=== PATIENT | male | born 1980 | race Caucasian/White ===

== ENCOUNTER 2019-05-15 09:25 | Outpatient (CLI) | payer BC, SELFPAY ==
--- NOTE | 2019-05-15 09:39 | MR_ITS ---
WS: [id number] MRI THORACIC SPINE with and without contrast HISTORY: EPENDYMOMA, WHO GRADE II COMPARISON: 05/10/2018 and 01/03/2018 TECHNIQUE: Multiplanar sequences are performed in sagittal and axial planes. Sagittal and axial T1 fa t sat sequences post-ProHance 17 cc IV. Surgical resection of an intramedullary thoracic cord lesion has been performed at the T9 level. Post erior laminectomy defect at T8-9. There is tethering and posterior displacement of the thoracic cord centered at the T9 level and the surgical site. Probably due to some scarring and adhesions. There ar e a few areas of increased T2 signal scattered through the medullary portion of the cord which are si milar to the prior study. No enhancement. There is no evidence for recurrent or residual tumor. There is a small amount of persistent enhancement in the posterior epidural region but improved since the prior study. Postoperative changes in the soft tissues are also improving. No compromise on the thoracic cord. No significant disc disease or protrusions. Very minimal bulging at the T9-10 level centrally. Conus tapers normally ends at L1. MR/MR thoracic spine w con [id number] IMPRESSION: 1. Status post resection of the ependymoma at the T9 level. No evidence for re currence or new area of enhancement. 2. Mild tethering and posterior displacement of the thoracic cord at T9 level may be due to gliosis related to postsurgical changes, similar to the prior margi dy. No adverse findings. 3. No central or foraminal stenosis.
== END 2019-05-15 09:26 | disposition home or self-care (01) ==
LOC: RADWPI 09:34
PROVIDERS: Family Provider Internal Medicine; PCP Internal Medicine; Referring Provider Internal Medicine
DX: C71.9 Malignant neoplasm of brain, unspecified (principal); Z98.890 Other specified postprocedural states
CPT/HCPCS: 72147; A9579

== ENCOUNTER 2020-12-10 10:55 | Outpatient (CLI) | payer MEDICARE, SELFPAY ==
[2020-12-10 11:59] VITALS: BP 112/76; PULSE 91; RESP 14; TEMP 36.7; O2SAT 95
[2020-12-10 12:13] VITALS: BP 120/82; PULSE 72; RESP 14; TEMP 37.3; O2SAT 92
[2020-12-10 13:06] VITALS: BP 112/75; PULSE 73; RESP 18; TEMP 36.7; O2SAT 94
== END 2020-12-10 15:33 | disposition home or self-care (01) ==
PROVIDERS: PCP Internal Medicine; Visit Provider Internal Medicine
DX: U07.1 COVID-19 (principal)
CPT/HCPCS: 96365

== ENCOUNTER 2021-12-23 08:02 | Oncology outpatient (recurring) (ONCR) | payer MEDICARE, OTHER, SELFPAY | END 2022-01-04 23:59 | disposition home or self-care (01) | PROVIDERS: PCP Internal Medicine; Visit Provider Internal Medicine Medical Oncology | DX: C72.0 Malignant neoplasm of spinal cord (principal); G62.9 Polyneuropathy, unspecified; G89.3 Neoplasm related pain (acute) (chronic); F10.20 Alcohol dependence, uncomplicated; Z79.1 Long term (current) use of non-steroidal anti-inflammatories (NSAID); Z87.891 Personal history of nicotine dependence | CPT/HCPCS: 99205 ==

== ENCOUNTER 2022-01-19 15:15 | Oncology outpatient (recurring) (ONCR) | payer MEDICARE, OTHER, SELFPAY ==
--- NOTE | 2022-01-18 14:16 | MR_ITS ---
WS: [id number] MRI CERVICAL SPINE NONCONTRAST AND CONTRAST TECHNIQUE: Sagittal T1, T2 and STIR imaging. Axial T2, gradient, and fiesta imaging. Post gadolinium imaging. CLINICAL INFORMATION: Surveillance postresection COMPARISON: MRI October 19, 2020 FINDINGS: Straightening of the normal cervical lordosis. Mild disc bulging C5-C6 and C6-C7. Cord signal is norm al. No high-grade central canal stenosis. No abnormal gadolinium enhancement. C2-C3: Normal. C3-C4: Mild facet arthropathy. Mild RIGHT and no LEFT foraminal narrowing. Mild facet arthropathy. Sp inal canal is patent. C4-C5: Mild facet arthropathy. Spinal canal and foramen are patent. C5-C6: Mild disc bulging with slight effacement of ventral thecal sac. Spinal canal and foramen are p atent. Mild facet arthropathy. C6-C7: Mild disc bulging with slight effacement of ventral thecal sac. Mild bilateral bony foraminal narrowing. Spinal canal is patent. C7-T1: Minimal disc bulging. Spinal canal and foramen are patent. No abnormal gadolinium enhancement. Visualized brain stem structures: Normal. Prevertebral soft tissues: Normal. MR/MR cervical spine wo/w [id number] IMPRESSION: 1. Straightening of the normal cervical lordosis. No high-grade central canal narrowing. 2. Cord signal is normal. 3. No evidence of enhancing metastatic disease. 4. Mild disc bulging C5-C6 and C6-C7 with slight effacement of ventral thecal sac unchanged.
--- NOTE | 2022-01-18 14:16 | MR_ITS ---
WS: [id number] MRI THORACIC SPINE WITH CONTRAST TECHNIQUE: Sagittal T1, T2 and STIR imaging. Axial T2 imaging. Post gadolinium imaging was obtained. CLINICAL INFORMATION: Surveillance postresection COMPARISON: MRI October 19, 2020 FINDINGS: Prior postoperative changes laminectomies for intramedullary tumor resection at the T8-T9 level. Asso ciated myelomalacia in the thoracic cord is unchanged. Dorsal displacement of the thoracic cord at th is level with suspected arachnoid adhesion unchanged. No evidence of enhancing recurrent or progressi ve disease. Cord signal is otherwise normal. Tiny RIGHT pericentral protrusion T9-T10 with slight narrowing of the RIGHT subarticular recess. Mild facet arthropathy in the lower thoracic spine. Adrenal glands are normal. Normal GE junction. Normal caliber thoracic aorta. MR/MR thoracic spine wo/w [id number] IMPRESSION: 1. Prior postoperative changes resection of the T9 intramedullary ependymoma w ith wide laminectomy defects. No evidence of recurrent or progressive disease. 2. Associated myelomalacia within the thoracic cord with dorsal kinking and di splacement suspicious for arachnoid adhesion unchanged. 3. Tiny RIGHT pericentral protrusion T9-T10 with slight narrowing of the RIGHT subarticular recess. Mild facet arthropathy in the lower thoracic spine. 4. No other suspicious findings.
--- NOTE | 2022-01-18 15:19 | MR_ITS ---
WS: [id number] MRI LUMBAR SPINE WITH CONTRAST TECHNIQUE: Sagittal T1, T2 and STIR imaging. Axial T1 and T2 imaging. Post gadolinium imaging was obt ained. CLINICAL INFORMATION: Surveillance postresection COMPARISON: October 19, 2020 FINDINGS: Mild lumbar curve. No acute compression. No high-grade central canal stenosis. Postoperative changes RIGHT L5-S1 hemilaminectomy unchanged. No acute compression fractures. No abnormal gadolinium enhance ment. No evidence of drop metastasis. L1-L2: Normal. L2-L3: No significant disc bulging. Mild facet arthropathy. Spinal canal and foramen are patent. L3-L4: No significant disc bulging. Mild facet arthropathy. Spinal canal and foramen are patent. L4-L5: Mild annular bulging with slight effacement of ventral thecal sac. Mild facet arthropathy. Spi nal canal and foramen are patent. L5-S1: Mild disc bulging with slight effacement of ventral thecal sac. Slight impingement on the paul ersing RIGHT greater than LEFT S1 nerve roots in the subarticular recess. Small annular fissure. Prio r RIGHT hemilaminectomy. Mild RIGHT foraminal narrowing. Mild facet arthropathy. Mild central canal s tenosis. Visualized pelvic bony structures: Normal. Paravertebral soft tissues: Normal. MR/MR lumbar spine wo/w con [id number] IMPRESSION: 1. No evidence of enhancing drop metastasis. 2. Annular bulging L5-S1 with a small annular tear. Mild central canal stenosi s with slight impingement on the traversing RIGHT greater than LEFT S1 nerve ro ots appear similar to previous. 3. Mild RIGHT L5-S1 foraminal narrowing. 4. RIGHT L5-S1 hemilaminectomy.
[2022-01-18] MEDS: gadobenate dimeglumine 20 mL vial IV (16:24)
== END 2022-02-03 23:59 | disposition home or self-care (01) ==
LOC: RAD 01-20 00:02 → ONCMED 01-22 13:12
PROVIDERS: PCP Internal Medicine; Visit Provider Internal Medicine Medical Oncology
DX: Z53.9 Procedure and treatment not carried out, unspecified reason (principal)
CPT/HCPCS: 72156; 72157; 72158

== ENCOUNTER → 2022-05-02 13:50 | Outpatient (BNVA) | payer MEDICARE, SELFPAY | PROVIDERS: PCP Internal Medicine; Visit Provider Orthopaedic Surgery | DX: M54.50 Low back pain, unspecified (principal); M48.062 Spinal stenosis, lumbar region with neurogenic claudication | CPT/HCPCS: 72110; 99204 ==

== ENCOUNTER 2022-06-19 10:30 | Inpatient (IN) | payer MEDICARE, OTHER, SELFPAY ==
[2022-06-12 08:30] VITALS: BMI 35.1
--- NOTE | 2022-06-12 08:53 | ANES.PREANE2 ---
Pre-Anesthetic Assessment Height/Weight: Height 1.75 m Weight 107.955 kg Operation Date: 06/19/22 07:00 Proposed Procedures p Posterior Lumbar Interbody Fusion L4/5 [id number],M54.9 M48.062(Not Applicable) - Casey Musa DO Familial anesthetic complications: None Social Alcohol (3-4 nights a week) and No tobacco Exam alert, oriented x 3, clear to auscultation bilaterally and regular rate & rhythm Airway Mallampati: Class III Dentition: other (bridge) Pulmonary spontaneous pneumothorax with chest tube in 2003 - no residual deficits Neuropsych ependymoma at t9 grade II Anesthetic Plan ASA status: 3 Anesthesia: General Risk of > 500 ml blood loss (7ml/kg in children): No Medications/Allergies Home Medications Medication Instructions Recorded Confirmed Last Taken Type acetaminophen 325 mg tablet 325 mg PO QID PRN Pain 12/23/21 06/12/22 Unknown History (Tylenol) docusate sodium 100 mg capsule 100 mg PO DAILY PRN Constipation 12/23/21 06/12/22 Unknown History (Dulcolax Stool Softener (docusate)) ibuprofen 200 mg tablet 200 mg PO Q6H PRN Pain 12/23/21 06/12/22 06/06/22 History pregabalin 100 mg capsule (Lyrica) 100 mg PO BID 12/23/21 06/12/22 Unknown History sennosides 8.6 mg tablet (senna) 8.6 mg PO DAILY PRN Constipation 12/23/21 06/12/22 Unknown History sertraline 50 mg tablet (Zoloft) 50 mg PO DAILY 12/23/21 06/12/22 Unknown History sildenafil (pulm.hypertension) 20 See Rx Instructions PO DAILY PRN 12/23/21 06/12/22 Unknown History mg tablet Hypertension clobetasol 0.05 % topical foam 1 applic topical BID #100 grams 01/31/22 06/12/22 Unknown Rx clobetasol 0.05 % topical ointment 1 applic topical BID 2 weeks #60 01/31/22 06/12/22 Unknown Rx grams ketoconazole 2 % shampoo 1 applic topical .2x weekly #120 mL 01/31/22 06/12/22 Unknown Rx triamcinolone acetonide 0.1 % 1 applic topical BID #80 grams 01/31/22 06/12/22 Unknown Rx topical ointment hydroxyzine HCl 25 mg tablet 20 mg PO PRN PRN Anxiety 06/12/22 06/12/22 Unknown History Allergies Allergy/AdvReac Type Severity Reaction Status Date / Time No Known Allergies Allergy Verified 06/12/22 08:21 [facility] Anesthesia Medical History Anxiety and depression Chronic lower back pain Chronic migraine Ependymoma of spinal cord Erectile dysfunction History of pneumothorax Neuropathic pain Surgical History History of chest tube placement Due to spontaneous pneumothorax History of laminectomy (02/2017) L4 & L5 History of spinal surgery (02/11/18) Complete laminectomy with bilateral foraminotomies at T9 and hemilaminectomy with bilateral foraminotomies at T8 and T10 with excision of intraspinal neoplasm History of tonsillectomy Family History Father CAD (coronary artery disease) Grandfather CAD (coronary artery disease) Other Cancer Dementia Hyperlipidemia Hypertension Denies family history of Clotting disorder Psychiatric illness Chronic kidney disease (CKD) Suicide Anesthesia complication Bleeding disorder Lung disease Stroke Social History Smoking and tobacco status: never smoked Alcohol intake: current Alcohol intake frequency: few times a week Data Anesthesia Cardiac Studies: No Data to Display
[2022-06-19] VITALS (29 sets, daily range): BP systolic 108–149; BP diastolic 69–99; PULSE 58–103; RESP 12–20; TEMP 36.2–37.1; O2SAT 90–97; BMI 35.1
--- NOTE | 2022-06-19 06:25 | PM.HP ---
Providers/Chief Complaint Primary Care Provider: Chris Fontanez DO Chief Complaint: L4/5 PLIF [id number]/M54.9 M54. History of Present Illness Jefry Burnette is a 42 year old male He states he has been experiencing low back pain for several years. He states he has a surgical history of a bilateral L4/L5 laminectomy at [facility] in February of 2017. He states he has a surgical history of a intramedullary spinal tumor at T9, that was removed at [facility] in 2018. He reports low back pain at todays visit. He explains the laminectomy was performed to help his radiating pain in his bilateral lower extremities, he states since surgery he has experienced back pain that has been severe and constant. He denies any radiating pain. He reports numbness and tingling located in his bilateral lower extremities. He rates his pain a 9/10 at todays visit. ? Chief Complaint: back pain Onset: 2016 Duration: constant Characteristics: stabbing Severity: 7/10 Location: lumbar region Radiating symptoms: none Aggravating factors: sitting, standing, walking for long periods at a time. Alleviating factors: none Neuro deficits: reports numbness, tingling. denies incontinence of bowel/bladder, saddle anesthesia. Prior tx: laminectomy in 2016, injections at [facility], chiropractic therapy, physical therapy, TENS unit Review of Systems General: Reports: 10 or more systems reviewed and unremarkable except in HPI and below Const: Denies: fever(s), chills or body aches Card: Denies: chest pain or orthopnea Resp: Denies: dyspnea, productive cough or wheezing GI: Denies: abdominal pain, nausea or vomiting Musc: Reports: back pain Skin/Breast: Denies: changes in skin color or dry skin Neuro: Reports: numbness in extremities; Denies: weakness in extremities Psych: Denies: anxiety Wes/Lymph: Denies: easy bruising or easy bleeding Medications/Allergies Home Medications Medication Instructions Recorded Confirmed Last Taken Type acetaminophen 325 mg tablet 325 mg PO QID PRN Pain 12/23/21 06/19/22 06/18/22 History (Tylenol) docusate sodium 100 mg capsule 100 mg PO DAILY PRN Constipation 12/23/21 06/12/22 Unknown History (Dulcolax Stool Softener (docusate)) ibuprofen 200 mg tablet 200 mg PO Q6H PRN Pain 12/23/21 06/12/22 06/06/22 History pregabalin 100 mg capsule (Lyrica) 100 mg PO BID 12/23/21 06/19/22 06/17/22 History sennosides 8.6 mg tablet (senna) 8.6 mg PO DAILY PRN Constipation 12/23/21 06/12/22 Unknown History sertraline 50 mg tablet (Zoloft) 50 mg PO DAILY 12/23/21 06/19/22 06/17/22 History sildenafil (pulm.hypertension) 20 See Rx Instructions PO DAILY PRN 12/23/21 06/12/22 Unknown History mg tablet Hypertension clobetasol 0.05 % topical foam 1 applic topical BID #100 grams 01/31/22 06/12/22 Unknown Rx hydroxyzine HCl 25 mg tablet 20 mg PO PRN PRN Anxiety 06/12/22 06/12/22 Unknown History ketoconazole 2 % shampoo 1 applic topical .2x weekly #120 mL 06/13/22 Unknown Rx triamcinolone acetonide 0.1 % 1 applic topical BID #80 grams 06/13/22 Unknown Rx topical ointment Allergies Allergy/AdvReac Type Severity Reaction Status Date / Time No Known Allergies Allergy Verified 06/19/22 06:03 PFSH Acute PFSH: Medical History Anxiety and depression Chronic lower back pain Chronic migraine Ependymoma of spinal cord Erectile dysfunction History of pneumothorax Neuropathic pain Surgical History History of chest tube placement Due to spontaneous pneumothorax History of laminectomy (02/2017) L4 & L5 History of spinal surgery (02/11/18) Complete laminectomy with bilateral foraminotomies at T9 and hemilaminectomy with bilateral foraminotomies at T8 and T10 with excision of intraspinal neoplasm History of tonsillectomy Family History Father CAD (coronary artery disease) Grandfather CAD (coronary artery disease) Other Cancer Dementia Hyperlipidemia Hypertension Denies family history of Clotting disorder Psychiatric illness Chronic kidney disease (CKD) Suicide Anesthesia complication Bleeding disorder Lung disease Stroke Social History Smoking and tobacco status: never smoked Alcohol intake: current Alcohol intake frequency: few times a week Vitals/I&O/Wt Last Vital Signs Temp 97.6 F 06/19/22 05:58 Pulse 62 06/19/22 05:58 Resp 18 06/19/22 05:58 BP 131/81 06/19/22 05:58 Pulse Ox 94 06/19/22 05:58 O2 Del Method 06/19/22 06:11 Physical Exam Narrative: EXAM NARRATIVE: EXAM NARRATIVE: CONSTITUTIONAL: This is a normal patient in no acute distress. ?PSYCH: The patient is oriented to person, place and time. ?SKIN: The skin is of normal color and texture. ?NEURO: Patient is neurovascularly intact. A&P Assessment and plan (1) Lumbar stenosis with neurogenic claudication: L4-S1 PLIF Attestations Medical Necessity Statement*: Failed conservative tx Coding Level of Care Code Acute Code for [facility] Fwd Diagnoses Lumbar stenosis with neurogenic claudication M48.062
[2022-06-19] MEDS: sodium chloride 0.9% 1,000 ML 30 ML IV (06:43)
[2022-06-19] MEDS: HYDROmorphone 1 mg/mL INJ 1 mL 0.5 MG IVP ×2 (06:44→11:51)
[2022-06-19] MEDS: ceFAZolin 2,000 MG in sodium chloride 0.9% (plus) 50 ML 100 MG IV ×3 (06:59→22:02)
--- NOTE | 2022-06-19 07:15 | P.ANESUD_ITS ---
Pre-Anesthetic Update Pre-Anesthetic Assessment: Date of Surgery/Procedure: 06/19/22 Preop Sarah gnosis: Lumbar stenosis, DDD lumber spine Proposed Procedure: Operation Date: 06/19/22 07:00 Proposed Procedures p PLIF l4-5 [id number] Decomp L4/5, L5- S1. Instrumented Fusion L4-S1 w/any oth indicated procedures [id number],M54.9 M48.062(Not Applicable) - Casey Musa, DO Any changes to Pre-Anesthetic Assessment?: No Last Intake: Intake Last Liquid Date 06/18/22 Last Liquid Time 23:30 Last Solid Date 06/18/22 Last Solid Time 18:00 Vitals: Temperature 97.6 F 06/19/22 05:58 Temperature Source Temporal Artery S can 06/19/22 05:58 Pulse Rate 62 06/19/22 05:58 Pulse Rhythm 06/19/22 06:11 Pulse Strength 3+ Normal 06/19/22 06:11 Respiratory Rate 16 06/19/22 06:44 Respiratory Depth Normal 06/19/22 06:44 Blood Pressure 131/81 06/19/22 05:58 Blood Pressure Martha n 97 06/19/22 05:58 Pulse Oximetry 94 06/19/22 05:58 Oxygen Delivery Me thod 06/19/22 06:11 Exam: Pre-Anes Outpt Exam: alert, oriented x 3, clear to auscultation bilaterally and regular rate & rhythm Cardiac Studies: No Data to Display
[2022-06-19] MEDS: vancomycin 1,000 MG SDV 1000 MG XX (07:35)
[2022-06-19] MEDS: heparin, porcine 1,000 unit/mL INJ 10 mL 10000 UNIT IRRIGATION (07:35)
[2022-06-19] MEDS: lidocaine-epi 2% 20 mL INJ ×4 (08:10→10:25)
[2022-06-19 08:17] LABS: Hematocrit 41.9 % (42.0-52.0); Hemoglobin 14.2 g/dL (11.7-16.6)
--- NOTE | 2022-06-19 10:18 | XR_ITS ---
WS: [id number] C-ARM RADIOGRAPHS LUMBAR SPINE; 3 IMAGES HISTORY: or pics COMPARISON: None available. Intraoperative imaging during posterior lumbar fusion. Lumbar fusion from L4 to S1 with interbody spa cers at L4-5 and L5-S1. XR/XR lumbar spine 1V port [id number] IMPRESSION: Intraoperative imaging during lumbar fusion.
--- NOTE | 2022-06-19 10:40 | PM.OP ---
Operative Report Date of procedure: June 19, 2022 Pre-op diagnosis: Preop Diagnosis Lumbar stenosis, DDD lumber spine Post-op diagnosis: same Procedure done: 1. L4/5 Interbody fusion with posterolateral fusion 2. L5/S1 Interbody fusion with posterolateral fusion 3. Instrumentation L4- S1 4. Cage at L4/5 5. Cage at L5/S1 6. Laminectomy L4 7. Laminetomy L5 8. use of autograft from same incision 9. use of allograft 10. Bone marrow aspirate from right iliac crest 11. use of computer navigation/stereotactic for spine Surgeon: Casey Musa Production Pattern Maker: Jake Goodman Production Pattern Maker: The surgical services manager, Jake Goodman, PAC was needed for his expertise under the microscope. He was important and necessary throughout the procedure to complete in a safe and timely manner. He assisted with patient positioning prepping and draping tissue retraction suctioning of the operative field protection of the dural sac and tissue closure Estimated blood loss (mL): 1,300 Procedure: 1. L4/5 Interbody fusion with posterolateral fusion 2. L5/S1 Interbody fusion with posterolateral fusion 3. Instrumentation L4- S1 4. Cage at L4/5 5. Cage at L5/S1 6. Laminectomy L4 7. Laminetomy L5 8. use of autograft from same incision 9. use of allograft 10. Bone marrow aspirate from right iliac crest 11. use of computer navigation/stereotactic for spine Patient is brought to the operative suite. After undergoing anesthesia, the patient had neuro monitoring attached. Patient was then placed in the prone position on the Bradford table. All areas of impingement were well-padded. Patient was then prepped and draped in the normal sterile fashion. Skin incision was then made over the L4 -S1 . Subperiosteal dissection was made out to the transverse processes of L4 and L5 and the sacral ala. Attention was then brought to the [employer] bone marrow aspirate kit was used to aspirate bone marrow aspirate from right iliac crest. This was done by using the sharp probe to open up the bone. Aspiration was performed and then the blunt probe was then used to dissect down to through the bone tunnel. An aspirating well drawn back a millimeter approximately 20 cc of bone marrow aspirate was used. And mixed with the allograft and autograft bone that will be used. Next the fiducial was placed in the right iliac crest this is used for computer navigation. The C-arm was brought in the information from the C-arm was then loaded the computer in order to facilitate placing the screws using the computer navigation. These 2 pins were old later be removed at the end of the case where the fiducial was attached to. The technique for placing the pedicle screws was to use a drill followed by the gearshift probe attached to computer navigation. Followed by the ball probe to feel the superior inferior medial lateral wilcox of the pedicles. Then placement of the screws with computer navigation. Was done at each pedicle. Screws were placed at L4 bilaterally and L5 bilaterally and S1 bilaterally. Next attention was brought to performing the laminectomy ofL4. This was done using the high-speed bur Kerrisons and curettes. Once the lamina was removed and then attention was brought to performing a partial facetectomy on the contralateral side. This was done again using the high-speed bur curettes and Kerrisons. The ligamentum flavum was taken down bilaterally from L4 to L5. Attention was then brought to the facet on the ipsilateral side. The facet was taken down. The L4/5 nerve was decompressed as it passed around the L5 pedicle. The laminectomy was done for purposes of decompressing the nerve as well as placement of the cage. The L4 nerve was identified as it traversed through the L4/5 foramen. The thecal sac was identified and retracted. The L4/5 disc base was identified. Using a knife the disc base was opened. And then sequential richie were placed. The first shaver was a 6 and the last shaver was a 11. Using a pituitary and down going curette the endplates were scraped and disc material was removed from the space. Once adequate decompression of the disc base was felt to be had. Osteoamp sponge was packed into the anterior aspect of the disc base. Then a size 12 cage from [employer] [place] [employer] was placed after packing osteoamp into the cage. While placing the cage the thecal sac and L5 nerve was protected. C arm was used to ensure that the cages placed in the appropriate position. Next attention was brought to performing the laminectomy ofL5. This was done using the high-speed bur Kerrisons and curettes. Once the lamina was removed and then attention was brought to performing a partial facetectomy on the contralateral side. This was done again using the high-speed bur curettes and Kerrisons. The ligamentum flavum was taken down bilaterally from L5 to S1. Attention was then brought to the facet on the ipsilateral side. The facet was taken down. The S1 nerve was decompressed as it passed around the S1 pedicle. The laminectomy was done for purposes of decompressing the nerve as well as placement of the cage. The L5 nerve was identified as it traversed through the L5/S1 foramen. The thecal sac was identified and retracted. The L5/S1 disc base was identified. Using a knife the disc base was opened. And then sequential richie were placed. The first shaver was a 6 and the last shaver was a 12. Using a pituitary and down going curette the endplates were scraped and disc material was removed from the space. Once adequate decompression of the disc base was felt to be had. Osteoamp sponge was packed into the anterior aspect of the disc base. Then a size 13 cage from [employer] was placed after packing osteoamp into the cage. While placing the cage the thecal sac and S1 nerve was protected. C arm was used to ensure that the cages placed in the appropriate position. Attention was then brought to attaching the rods to the screws placed in the L4 bilaterally, L5 bilaterally and S1 bilaterally.. Caps were torqued into position. Locking the construct in place. Wound was copiously irrigated and then attention was brought to decorticating the facets and transverse processes laterally. Bone that was taken down from the lamina was used along with osteoamp fibers and sponges were packed into the lateral gutters along the facet joints. This was done bilaterally. Wound was then closed in a layered fashion starting with the thoracolumbar fascia. 0-vicryl was used the sub cutaneous tissue was closed with 2-0 vicryl and skin with 4-0 monocryl. Glue was then used to seal the skin and a steril dressing was applied. Patient was then placed in the supine position. The endotracheal tube was removed and patient was transferred to the PACU in stable condition.
[2022-06-19] MEDS: fentaNYL 50 mcg/mL INJ 2mL IVP ×2 (10:57→11:15)
[2022-06-19] MEDS: HYDROmorphone 1 mg/mL INJ 1 mL 0.25 MG IVP (11:41)
[2022-06-19 11:45] LABS: Hematocrit 38.8 % (42.0-52.0); Hemoglobin 12.7 g/dL (11.7-16.6)
[2022-06-19] MEDS: lactated ringers 1,000 ML 90 ML IV ×2 (12:49→22:01)
[2022-06-19] MEDS: HYDROcodone-acetaminophen 5-325 mg Tablet PO ×3 (13:26→22:39)
[2022-06-19] MEDS: ketorolac 30 mg/mL INJ IVP ×2 (13:27→22:02)
[2022-06-19] MEDS: morphine 4 mg/mL SDV 1 mL 2 MG IVP ×2 (14:29→18:22)
--- NOTE | 2022-06-19 15:18 | ANE.PACU2 ---
Inpatient post-anesthesia follow up: Airway intact: Yes Vital signs: Temperature 97.8 F Pulse Rate 75 Respiratory Rate 20 Blood Pressure 125/69 Pulse Oximetry 94 Oxygen Delivery Me thod Nasal Cannula Oxygen Flow Rate 2 Fraction of Inspir ed Oxygen Hydration adequate: Yes Nausea and vomiting: No Pain level: 4 Mental status: Baseline
[2022-06-19] MEDS: docusate sodium 100 mg Capsule PO (18:04)
[2022-06-19] MEDS: pregabalin 100 mg Capsule PO (18:04)
[2022-06-20 03:47] VITALS: BP 110/72; PULSE 83; RESP 17; TEMP 36.7; O2SAT 94
[2022-06-20 05:29] LABS: Hemoglobin 10.8 g/dL (11.7-16.6)
[2022-06-20] MEDS: ceFAZolin 2,000 MG in sodium chloride 0.9% (plus) 50 ML 100 MG IV (05:59)
--- NOTE | 2022-06-20 07:11 | PM.PN ---
Subjective Subjective: POD 1 Patient resting comfortably. Reports mild back pain leg pain is much improved. Denies shortness of breath, chest pain, headaches. Vitals/I&O/Wt Last Vital Signs Temp 98.1 F 06/20/22 03:47 Pulse 83 06/20/22 03:47 Resp 17 06/20/22 03:47 BP 110/72 06/20/22 03:47 Pulse Ox 94 06/20/22 03:47 O2 Del Method 06/20/22 03:47 O2 Flow Rate 2 06/19/22 22:32 06/19/22 06/20/22 06/20/22 22:59 06:59 14:59 Intake Total 878 / 1428 100 / 1528 Output Total 875 / 1875 380 / 2255 Balance 3 / -447 -280 / -727 Weight last 48 hrs Weight 238 lb Physical Exam Narrative: Patient presents alert and oriented x3 with a good general appearance normal mood and affect. Normal coordination normal stability. Mild tenderness around the incisional site with the incision appear to be clean and dry with Hemovac intact. No signs of erythema or drainage. No signs of infection. Patient denies any fevers or chills. 5/5 motor strength both lower extremities with negative straight leg raise bilaterally. Calves are supple no medial thigh tenderness. Pulses are 2+ at the dorsalis pedis and posterior tibial region. Good capillary refill throughout normal sensation light touch both lower extremities. Urinary Catheter Management: Salter: Cath Placed During This Visit: yes Reason for Continuing Indwelling Catheter: Other Urinary Catheter Date of Insertion: 06/19/22 Urinary Catheter Time of Insertion: 07:15 Data 06/20/22 05:13 A&P Assessment and plan (1) Status post lumbar spinal fusion: Physical therapy to evaluate and mobilize. We will discontinue Salter catheter and Hemovac drain. Continue abdominal binder when up mobilizing. Encourage incentive spirometry for pulmonary toilet. If patient remains stable will discharge home. No bending lifting or twisting activities continue walking program. We will see him back in the office in 1 week's time for wound check and patient was instructed to call if he is having problems. Attestations Medical Necessity Statement*: DC home later today if stable Coding Level of Care Code Acute Code for Chg Fwd Diagnoses Status post lumbar spinal fusion Z98.1
[2022-06-20 07:54] VITALS: BP 108/67; PULSE 89; RESP 16; TEMP 36.9; O2SAT 97
[2022-06-20] MEDS: pregabalin 100 mg Capsule PO (08:31)
[2022-06-20] MEDS: docusate sodium 100 mg Capsule PO (08:31)
[2022-06-20] MEDS: sertraline 50 mg Tablet PO (08:31)
[2022-06-20] MEDS: HYDROcodone-acetaminophen 5-325 mg Tablet PO ×2 (08:32→12:45)
[2022-06-20] MEDS: ketorolac 30 mg/mL INJ IVP (08:33)
--- NOTE | 2022-06-20 09:47 | PC.CHAP ---
Pastoral Care Encounter/Spiritual Assessment Type of Contact [] Declined chronic disease manager visit [] Patient/Family/Request visit [] Outpatient visit [] Follow-up visit [] Physician referral [] Code/Alert [x] Routine visit [] Staff referral [] Actively dying [] Patient sleeping [x] Family support [] [] Out of room [] Palliative care [] [] Receiving care in room [] Pre-surgical visit [] Trauma [] Long length of stay [] ICU visit [] Other: Relational/Emotional Strength [x] Patient feels connected with others/family/visitors/staff [] Distress [] Loneliness/isolation [] Abandonment Spirituality of Patient [x] Person of Mechelle [x] Attends [employer] of their [place]echelle [x] Believes in Prayer [] Reads Bible or Hindu materials [] There are Spiritual issues to be addressed Textile Worker Interventions [x] Prayer [x] Active listening [] Non-anxious presence [x] Spiritual/emotional support [] Crisis/trauma care [] Spiritual counseling [] Bereavement support [] Provided bereavement packet [] Provided Bible/devotional materials [] Provided toy/stuffed animal, coloring book to patient or family member [] Provided Communion [] Anointing/[place] [] Salvation [] Completed spiritual assessment [] Other: Impact on Illness or Injury [] Angry [] Fearful [] Anxious [] Often cries [] Exhaustion [] Unable to work [] Unable to attend adventism [] Unable to walk/stand [] Unable to read [] Unable to drive [] Unable to eat/drink [] Unable to sleep [] Unable to be with family [] Patient intubated [] Other: Summary Time spent with patient 10 min
[2022-06-20 10:50] VITALS: RESP 17
[2022-06-20] MEDS: morphine 4 mg/mL SDV 1 mL 2 MG IVP (10:50)
[2022-06-20 13:20] VITALS: RESP 17
--- NOTE | 2022-06-20 18:32 | PC.NURSE ---
2mg morphine wasted with Briseida Mcbride RN
--- NOTE | 2022-06-20 18:34 | PC.NURSE ---
Bessie witnessed waste of 2mg Morphine with me.
== END 2022-06-20 12:58 | disposition home or self-care (01) | DRG 455 ==
LOC: MEDSURG 10:33
PROVIDERS: Admitting Provider Orthopaedic Surgery; PCP Internal Medicine; Visit Provider Orthopaedic Surgery
PROC: 0SG00AJ Fusion of Lumbar Vertebral Joint with Interbody Fusion Device, Posterior Approach, Anterior Column, Open Approach (ICD-10-PCS; CPT 22612; principal; 2022-06-19 07:00)
DX: M48.062 Spinal stenosis, lumbar region with neurogenic claudication (principal); F41.8 Other specified anxiety disorders; G89.29 Other chronic pain
CPT/HCPCS: 36415; 51702; 72020; 76000; 85014; 85018; 86850; 86900; 96368; 97110; 97116; 97161; 97530; C1713; J0690; J1100; J1170; J1644; J1885; J2250; J2270; J2405; J2704; J2710; J3010; J3370; J3490; J7030; J7120; P9045

== ENCOUNTER 2022-06-24 08:18 | Emergency (ER) | payer MEDICARE, OTHER, SELFPAY ==
[2022-06-24 08:34] VITALS: BP 135/87; PULSE 77; RESP 16; TEMP 36.7; O2SAT 96
--- NOTE | 2022-06-24 08:54 | CTR_ITS ---
PROCEDURE INFORMATION: Exam: CT Head Without Contrast Exam date and time: 06/24/2022 9:10 AM Age: 42 years old Clinical indication: Pain; Headache not specified; Additional info: Post op plif with LIU and confusion TECHNIQUE: Imaging protocol: Computed tomography of the head without contrast. Axial, coronal and sagittal reformatted images were created and reviewed. Radiation optimization: All CT scans at this facility use at least one of these dose optimization techniques: automated exposure control; mA and/or kV adjustment per patient size (includes targeted exams where dose is matched to clinical indication); or iterative reconstruction. Other protocol: This patient has received 0 known CTs and 0 known cardiac nuclear medicine studies in the 12 months prior to the current study. COMPARISON: MR cervical spine wo/w [id number] 01/18/2022 4:42 PM RADIATION DOSE METRICS: Total DLP (mGy-cm): 1050.29 FINDINGS: Brain: No CT evidence of acute intracranial hemorrhage or acute territorial infarction. No significant mass effect or midline shift. Basal cisterns patent. Cerebral ventricles: Normal in size and configuration. Paranasal sinuses: Minimal ethmoid mucosal thickening. No air-fluid levels. Mastoid air cells: Grossly unremarkable. Bones/joints: No acute osseous abnormality. Soft tissues: Grossly unremarkable. CT/CT head wo con* [id number] IMPRESSION: 1. No CT evidence of acute intracranial pathology. 2. Additional findings, as above.
--- NOTE | 2022-06-24 09:00 | W.ED.HA ---
Documented by User: GAIL Ackerman 06/24/22 11:09 HPI - Headache General: Chief Complaint: Headache Stated Complaint: post back surgery, head problems Time Seen by Provider: 06/24/22 08:26 History of Present Illness: Jefry Burnette is a 42-year-old man who presents to the emergency department with complaints of headache and confusion. Patient is s/p 4 to S1 PLIF on 06/19/[address] Prado. Patient was admitted for observation and discharged on 06/20/2022. At the time of discharge patient had some mild tenderness but no complaints of headache. reports that patient has had increasing headaches and confusion since discharge home. Patient has taken his oral narcotic pain medication but no improvement in headache. Pain does change with position. It appears to be worse when lying down not when sitting up or standing. Patient's confusion has worsened; reports he has not slept in days. Patients' dressings are intact. PFSH ED PFSH: Medical History Anxiety and depression Chronic lower back pain Chronic migraine Ependymoma of spinal cord Erectile dysfunction History of pneumothorax Neuropathic pain Surgical History History of chest tube placement Due to spontaneous pneumothorax History of laminectomy (02/2017) L4 & L5 History of spinal surgery (02/11/18) Complete laminectomy with bilateral foraminotomies at T9 and hemilaminectomy with bilateral foraminotomies at T8 and T10 with excision of intraspinal neoplasm History of tonsillectomy Family History Father CAD (coronary artery disease) Grandfather CAD (coronary artery disease) Other Cancer Dementia Hyperlipidemia Hypertension Denies family history of Clotting disorder Psychiatric illness Chronic kidney disease (CKD) Suicide Anesthesia complication Bleeding disorder Lung disease Stroke Social History Smoking and tobacco status: never smoked Alcohol intake: current Alcohol intake frequency: few times a week Physical Exam Const: COMMON NORMALS: no acute distress, patient oriented x3 (Patient is oriented but has some confused speech initially.) and alert GENERAL APPEARANCE: cooperative ORIENTATION/CONSCIOUSNESS: Yes awake, Yes oriented to person, Yes oriented to place and Yes oriented to time HENMT: COMMON NORMALS: normocephalic and atraumatic HEAD & SCALP: normocephalic and atraumatic FACE & SINUS: normal facial exam MOUTH: Normal oral and palatal mucosa present THROAT: posterior oropharynx normal Eye: COMMON NORMALS: Equal, round and reactive pupils present, EOMs intact bilaterally, conjunctivae normal and no scleral icterus GENERAL EYE: appearance normal, both eyes and all related structures ALIGNMENT: Yes alignment normal PERIORBITAL: periorbital findings normal CONJUNCTIVA: Yes conjunctivae normal PUPIL: Yes Equal, round and reactive pupils present Neck/C-Spine: COMMON NORMALS: full ROM GENERAL: Yes normal visual inspection Lymph: LYMPHATIC: no lymphadenopathy noted Chest: COMMONS NORMALS: normal inspection of the chest Breast/axilla inspection: Yes no chest deformity, asymmetry, normal contours, no nodules, masses, tenderness Resp: COMMON NORMALS: normal respiratory effort, No retractions, No use of accessory muscles and clear to auscultation bilaterally EFFORT & INSPECTION: Yes able to speak in complete sentences and Yes symmetric chest movement AUSCULTATION: clear to auscultation bilaterally Cardio: COMMON NORMALS: regular rate, regular rhythm and Peripheral pulses 2+ throughout RATE: regular rate RHYTHM: regular rhythm PERIPHERAL PULSES: Peripheral pulses 2+ throughout GI: COMMON NORMALS: Normal to inspection, nondistended, normoactive bowel sounds present, Soft to palpation, non-tender and No hepatosplenomegaly present INSPECTION: Yes normal to inspection AUSCULTATION: Yes normoactive bowel sounds PALPATION: Yes Soft to palpation and Yes No hepatosplenomegaly present RECTAL EXAM: Yes deferred Back/Pelvis: OTHER: Lumbar surgical site dressing is clean dry and intact. Lumbar back pain 4 -/5 hip flexor, quad, anterior tibialis, gastroc, toe extensors lateral lower extremity Limited attempt on straight leg raise due to pain Sensation intact throughout all distributions. Extremities are well-perfused Extremity: COMMON NORMALS: normal to inspection GENERAL: Yes normal exam except as noted Neuro: COMMON NORMALS: patient oriented x3 (Patient is oriented but has some confused speech initially.), moves all extremities and no focal motor deficits SENSORIUM/ORIENTATION: Yes alert, Yes oriented to person, Yes oriented to place and Yes oriented to time CRANIAL NERVES: Yes CN normal except as noted Psych: COMMON NORMALS: mental status grossly normal, Normal thought process present, cooperative, activity/motor behavior normal, denies homicidal ideation and denies suicidal ideation THOUGHT PROCESS: Normal thought process present Skin: COMMON NORMALS: no rashes or lesions noted, no wounds and turgor normal GENERAL SKIN EXAM: no rashes or lesions noted and turgor normal Course Vital Signs: Vital signs: Vital Signs Temperature 98.1 F 06/24/22 08:34 Pulse Rate 77 06/24/22 08:34 Respiratory Rate 16 06/24/22 08:34 Blood Pressure 135/87 06/24/22 08:34 Pulse Oximetry 96 06/24/22 08:34 Oxygen Delivery Me thod 06/24/22 08:34 MDM - Headache Medical Decision Making Patient was evaluated in the emergency department today for back pain and headache. He is s/p PLIF on 06/19/2022. Patient and describe progressively worsening headache that is worse when lying down. Patient has experienced some confused speech but this is improved with pain management. I did obtain a CT head which was remarkable. I also obtained laboratory evaluation which did not reveal any significant leukocytosis, anemias, electrolyte disturbance, abnormal renal or hepatic function I did speak with Dr Prado at 0915. To determine if he wanted any additional imaging. He advised no additional imaging. Patient's pain was treated here in the emergency department with Norflex, Decadron, Toradol. Patient did have some improvement in his symptoms. I talked with patient about home medications but he elected to discharge home with a prescription of Fioricet and tizanidine. Patient has been instructed to return here if his headache worsens or he develops any new concerning symptoms. Patient to follow-up with PT and Dr. prado as instructed. Lab Data 06/24/22 09:35 06/24/22 09:[address] 06/24/22 08:54 IMPRESSION: 1. No CT evidence of acute intracranial pathology. 2. Additional findings, as above. Laboratory Results WBC 10.6 10^3/uL (4.0-10.0) H 06/24/22 09:35 RBC 3.51 10^6/uL (4.1-5.3) L 06/24/22 09:35 Hgb 11.3 g/dL (11.7-16.6) L 06/24/22 09:35 Hct 34.5 % (42.0-52.0) L 06/24/22 09:35 MCV 98.3 fl (80-94) H 06/24/22 09:35 MCH 32.2 pg (28.0-34.0) 06/24/22 09:35 MCHC 32.8 g/dL (30.0-36.0) 06/24/22 09:35 RDW 11.9 % (12.1-15.1) L 06/24/22 09:35 Plt Count 416 10^3/cmm (130-400) H 06/24/22 09:35 MPV 9.5 fL (7.4-10.4) 06/24/22 09:35 Neut % (Auto) 67.8 % 06/24/22 09:35 Lymph % (Auto) 16.8 % 06/24/22 09:35 [place] % (Auto) 10.6 % 06/24/22 09:35 Eos % (Auto) 3.0 % 06/24/22 09:35 Baso % (Auto) 0.8 % 06/24/22 09:35 Neut # (Auto) 7.20 10^3/uL (1.8-7.7) 06/24/22 09:35 Lymph # (Auto) 1.8 10^3/uL (0.8-4.8) 06/24/22 09:35 [place] # (Auto) 1.1 10^3/uL (0.2-0.9) H 06/24/22 09:35 Eos # (Auto) 0.3 10^3/uL (0.0-0.8) 06/24/22 09:35 Baso # (Auto) 0.1 10^3/uL (0.0-0.1) 06/24/22 09:35 Nucleated RBC % (auto) 0.2 % 06/24/22 09:35 Nucleated RBCs # 0.0 /100WBC 06/24/22 09:35 Sodium 133 mmol/L (136-145) L 06/24/22 09:35 Potassium 4.1 mmol/L (3.5-5.1) 06/24/22 09:35 Chloride 97 mmol/L (98-107) L 06/24/22 09:35 Carbon Dioxide 25 mmol/L (22-29) 06/24/22 09:35 Anion Gap 15.1 (5-19) 06/24/22 09:35 BUN 11 mg/dL (6-20) 06/24/22 09:35 Creatinine 0.7 mg/dL (0.7-1.2) 06/24/22 09:35 GFR Calculation 122.5 mL/min (90-130) 06/24/22 09:35 Glucose 128 mg/dL (65-115) H 06/24/22 09:35 Calculated Osmolality 277 mOsm/kg (285-295) L 06/24/22 09:35 Calcium 9.1 mg/dL (8.5-10.5) 06/24/22 09:35 Total Bilirubin 0.2 mg/dL (0.15-1.2) 06/24/22 09:35 AST 37 U/L (0-40) 06/24/22 09:35 ALT 40 U/L (0-41) 06/24/22 09:35 Alkaline Phosphatase 61 U/L (40-130) 06/24/22 09:35 Total Protein 6.9 g/dL (6.6-8.7) 06/24/22 09:35 Albumin 3.7 g/dL (3.5-5.2) 06/24/22 09:35 Globulin 3.2 g/dL (1.3-4.6) 06/24/22 09:35 Discharge Plan Discharge Patient Disposition: Home Clinical Impression: Headache Condition: Stable Prescriptions: New Medrol (Devon) 4 mg tablets,dose pack See Rx Instructions .ROUTE .COMPLEX Qty: 21 0RF Rx Instructions: orally per package directions tizanidine 4 mg capsule 4 mg PO Q8H Qty: 30 0RF Fioricet 50-300-40 mg capsule 1 cap PO QID PRN (Reason: pain) Qty: 14 0RF Senna with Docusate Sodium 8.6-50 mg tablet 1 tab-cap PO BID Qty: 30 0RF No Action pregabalin [Lyrica] 100 mg capsule 100 mg PO BID sertraline [Zoloft] 50 mg tablet 50 mg PO DAILY ibuprofen 200 mg tablet 200 mg PO Q6H PRN (Reason: Pain) Hold Instructions: Resume on 07/15/22. acetaminophen [Tylenol] 325 mg tablet 325 mg PO QID PRN (Reason: Pain) docusate sodium [Dulcolax Stool Softener (dss)] 100 mg capsule 100 mg PO DAILY PRN (Reason: Constipation) sennosides [senna] 8.6 mg tablet 8.6 mg PO DAILY PRN (Reason: Constipation) sildenafil (pulm.hypertension) 20 mg tablet See Rx Instructions PO DAILY PRN (Reason: Hypertension) Rx Instructions: 1 to 5 tablets orally daily PRN; administer doses at least 4-6 hours apart ketoconazole 2 % shampoo 1 applic topical .2x weekly Qty: 120 6RF Rx Instructions: Lather into scalp 2-3 times weekly. Allow to sit on scalp for 5 minutes before rinsing. (DME) Intraoperative Neuromonitoring See Rx Instructions .Route .MEDSUPPLY Qty: 1 0RF Rx Instructions: As directed (DME) Bone Growth Stimulator E0748 See Rx Instructions .Route .MEDSUPPLY Qty: 1 0RF Rx Instructions: As directed clobetasol 0.05 % foam 1 applic topical BID Qty: 100 3RF Rx Instructions: Apply twice daily to affected areas on scalp as needed triamcinolone acetonide 0.1 % ointment 1 applic topical BID Qty: 80 1RF Rx Instructions: Apply to affected areas twice daily for 2 weeks alternating with clobetasol hydroxyzine HCl 25 mg tablet 20 mg PO PRN PRN (Reason: Anxiety) hydrocodone-acetaminophen 5-325 mg tablet 1 - 2 tab PO .Q4-6H Qty: 40 0RF Discharge Orders: Discharge ED (Routine); Ordered 06/24/22 Or[facility] By: [facility] Referrals: Casey Prado DO [Primary Care Provider] - Discharge Diet: Advance as tolerated Discharge Activity: Resume usual activity and Increase activity as tolerated Patient Instructions: Butalbital/Acetaminophen/Caffeine (By mouth), Tizanidine (By mouth), Acute Headache (ED), Opioid Safety, Pain Management Activity Restrictions/Additional Instructions: Please take all medications as prescribed Wear your brace as instructed by Dr. Prado Activity per Dr Prado Observe all restrictions/precautions per Dr. Prado Dressing care per Dr. Prado Please take a stool softener every day that you are taking narcotic Muscle relaxers as prescribed Fioricet as prescribed Coding Level of Care Code ED Mechanical Reliability Engineer for Chg Fwd Documented by User: Polo La DO 06/26/22 06:06 HPI - Headache General: Chief Complaint: Headache Stated Complaint: post back surgery, head problems Time Seen by Provider: 06/24/22 08:26 PFSH ED PFSH: Medical History Anxiety and depression Chronic lower back pain Chronic migraine Ependymoma of spinal cord Erectile dysfunction History of pneumothorax Neuropathic pain Surgical History History of chest tube placement Due to spontaneous pneumothorax History of laminectomy (02/2017) L4 & L5 History of spinal surgery (02/11/18) Complete laminectomy with bilateral foraminotomies at T9 and hemilaminectomy with bilateral foraminotomies at T8 and T10 with excision of intraspinal neoplasm History of tonsillectomy Family History Father CAD (coronary artery disease) Grandfather CAD (coronary artery disease) Other Cancer Dementia Hyperlipidemia Hypertension Denies family history of Clotting disorder Psychiatric illness Chronic kidney disease (CKD) Suicide Anesthesia complication Bleeding disorder Lung disease Stroke Social History Smoking and tobacco status: never smoked Alcohol intake: current Alcohol intake frequency: few times a week Course Vital Signs: Vital signs: Vital Signs Temperature 98.1 F 06/24/22 08:34 Pulse Rate 77 06/24/22 08:34 Respiratory Rate 16 06/24/22 08:34 Blood Pressure 135/87 06/24/22 08:34 Pulse Oximetry 96 06/24/22 08:34 Oxygen Delivery Me thod 06/24/22 08:34 MDM - Headache Medical Decision Making Patient was evaluated in the emergency department today for back pain and headache. He is s/p PLIF on 06/19/2022. Patient and describe progressively worsening headache that is worse when lying down. Patient has experienced some confused speech but this is improved with pain management. I did obtain a CT head which was remarkable. I also obtained laboratory evaluation which did not reveal any significant leukocytosis, anemias, electrolyte disturbance, abnormal renal or hepatic function I did speak with Dr Prado at 0915. To determine if he wanted any additional imaging. He advised no additional imaging. Patient's pain was treated here in the emergency department with Norflex, Decadron, Toradol. Patient did have some improvement in his symptoms. I talked with patient about home medications but he elected to discharge home with a prescription of Fioricet and tizanidine. Patient has been instructed to return here if his headache worsens or he develops any new concerning symptoms. Patient to follow-up with PT and Dr. prado as instructed. Chart reviewed and patient discussed with midlevel. Agree with assessment and plan. Lab Data 06/24/22 09:35 06/24/22 09:[address] 06/24/22 08:54 IMPRESSION: 1. No CT evidence of acute intracranial pathology. 2. Additional findings, as above. Laboratory Results WBC 10.6 10^3/uL (4.0-10.0) H 06/24/22 09:35 RBC 3.51 10^6/uL (4.1-5.3) L 06/24/22 09:35 Hgb 11.3 g/dL (11.7-16.6) L 06/24/22 09:35 Hct 34.5 % (42.0-52.0) L 06/24/22 09:35 MCV 98.3 fl (80-94) H 06/24/22 09:35 MCH 32.2 pg (28.0-34.0) 06/24/22 09:35 MCHC 32.8 g/dL (30.0-36.0) 06/24/22 09:35 RDW 11.9 % (12.1-15.1) L 06/24/22 09:35 Plt Count 416 10^3/cmm (130-400) H 06/24/22 09:35 MPV 9.5 fL (7.4-10.4) 06/24/22 09:35 Neut % (Auto) 67.8 % 06/24/22 09:35 Lymph % (Auto) 16.8 % 06/24/22 09:35 [place] % (Auto) 10.6 % 06/24/22 09:35 Eos % (Auto) 3.0 % 06/24/22 09:35 Baso % (Auto) 0.8 % 06/24/22 09:35 Neut # (Auto) 7.20 10^3/uL (1.8-7.7) 06/24/22 09:35 Lymph # (Auto) 1.8 10^3/uL (0.8-4.8) 06/24/22 09:35 [place] # (Auto) 1.1 10^3/uL (0.2-0.9) H 06/24/22 09:35 Eos # (Auto) 0.3 10^3/uL (0.0-0.8) 06/24/22 09:35 Baso # (Auto) 0.1 10^3/uL (0.0-0.1) 06/24/22 09:35 Nucleated RBC % (auto) 0.2 % 06/24/22 09:35 Nucleated RBCs # 0.0 /100WBC 06/24/22 09:35 Sodium 133 mmol/L (136-145) L 06/24/22 09:35 Potassium 4.1 mmol/L (3.5-5.1) 06/24/22 09:35 Chloride 97 mmol/L (98-107) L 06/24/22 09:35 Carbon Dioxide 25 mmol/L (22-29) 06/24/22 09:35 Anion Gap 15.1 (5-19) 06/24/22 09:35 BUN 11 mg/dL (6-20) 06/24/22 09:35 Creatinine 0.7 mg/dL (0.7-1.2) 06/24/22 09:35 GFR Calculation 122.5 mL/min (90-130) 06/24/22 09:35 Glucose 128 mg/dL (65-115) H 06/24/22 09:35 Calculated Osmolality 277 mOsm/kg (285-295) L 06/24/22 09:35 Calcium 9.1 mg/dL (8.5-10.5) 06/24/22 09:35 Total Bilirubin 0.2 mg/dL (0.15-1.2) 06/24/22 09:35 AST 37 U/L (0-40) 06/24/22 09:35 ALT 40 U/L (0-41) 06/24/22 09:35 Alkaline Phosphatase 61 U/L (40-130) 06/24/22 09:35 Total Protein 6.9 g/dL (6.6-8.7) 06/24/22 09:35 Albumin 3.7 g/dL (3.5-5.2) 06/24/22 09:35 Globulin 3.2 g/dL (1.3-4.6) 06/24/22 09:35 Discharge Plan Discharge Patient Disposition: Home Clinical Impression: Headache Condition: Stable Prescriptions: New Medrol (Devon) 4 mg tablets,dose pack See Rx Instructions .ROUTE .COMPLEX Qty: 21 0RF Rx Instructions: orally per package directions tizanidine 4 mg capsule 4 mg PO Q8H Qty: 30 0RF Fioricet 50-300-40 mg capsule 1 cap PO QID PRN (Reason: pain) Qty: 14 0RF Senna with Docusate Sodium 8.6-50 mg tablet 1 tab-cap PO BID Qty: 30 0RF No Action pregabalin [Lyrica] 100 mg capsule 100 mg PO BID sertraline [Zoloft] 50 mg tablet 50 mg PO DAILY ibuprofen 200 mg tablet 200 mg PO Q6H PRN (Reason: Pain) Hold Instructions: Resume on 07/15/22. acetaminophen [Tylenol] 325 mg tablet 325 mg PO QID PRN (Reason: Pain) docusate sodium [Dulcolax Stool Softener (dss)] 100 mg capsule 100 mg PO DAILY PRN (Reason: Constipation) sennosides [senna] 8.6 mg tablet 8.6 mg PO DAILY PRN (Reason: Constipation) sildenafil (pulm.hypertension) 20 mg tablet See Rx Instructions PO DAILY PRN (Reason: Hypertension) Rx Instructions: 1 to 5 tablets orally daily PRN; administer doses at least 4-6 hours apart ketoconazole 2 % shampoo 1 applic topical .2x weekly Qty: 120 6RF Rx Instructions: Lather into scalp 2-3 times weekly. Allow to sit on scalp for 5 minutes before rinsing. (DME) Intraoperative Neuromonitoring See Rx Instructions .Route .MEDSUPPLY Qty: 1 0RF Rx Instructions: As directed (DME) Bone Growth Stimulator E0748 See Rx Instructions .Route .MEDSUPPLY Qty: 1 0RF Rx Instructions: As directed clobetasol 0.05 % foam 1 applic topical BID Qty: 100 3RF Rx Instructions: Apply twice daily to affected areas on scalp as needed triamcinolone acetonide 0.1 % ointment 1 applic topical BID Qty: 80 1RF Rx Instructions: Apply to affected areas twice daily for 2 weeks alternating with clobetasol hydroxyzine HCl 25 mg tablet 20 mg PO PRN PRN (Reason: Anxiety) hydrocodone-acetaminophen 5-325 mg tablet 1 - 2 tab PO .Q4-6H Qty: 40 0RF Discharge Orders: Discharge ED (Routine); Ordered 06/24/22 Ordered By: Phong Flores Referrals: Casey Prado, [Primary Care Provider] - Discharge Diet: Advance as tolerated Discharge Activity: Resume usual activity and Increase activity as tolerated Patient Instructions: Butalbital/Acetaminophen/Caffeine (By mouth), Tizanidine (By mouth), Acute Headache (ED), Opioid Safety, Pain Management Activity Restrictions/Additional Instructions: Please take all medications as prescribed Wear your brace as instructed by Dr. Prado Activity per Dr Prado Observe all restrictions/precautions per Dr. Prado Dressing care per Dr. Prado Please take a stool softener every day that you are taking narcotic Muscle relaxers as prescribed Fioricet as prescribed Coding Level of Care Code ED Mechanical Reliability Engineer for Gayathri Norton
[2022-06-24] MEDS: dexamethasone 10 mg/mL INJ IVP (09:22)
[2022-06-24] MEDS: ketorolac 30 mg/mL INJ IVP (09:23)
[2022-06-24] MEDS: ondansetron 2 mg/ML SDV 2 mL 4 MG IVP (09:23)
[2022-06-24] MEDS: orphenadrine 30 mg/mL Inj 2 mL 60 MG IVP (09:23)
[2022-06-24 09:43] LABS: Basophils # 0.1 10^3/uL (0.0-0.1); Basophils % 0.8 %; Eosinophils # 0.3 10^3/uL (0.0-0.8); Hematocrit 34.5 % (42.0-52.0); Hemoglobin 11.3 g/dL (11.7-16.6); Lymphocytes # 1.8 10^3/uL (0.8-4.8); Lymphocytes % 16.8 %; Mean Corpuscular HGB Conc 32.8 g/dL (30.0-36.0); Mean Corpuscular Hemoglobin 32.2 pg (28.0-34.0); Mean Corpuscular Volume 98.3 fl (80-94); Mean Platelet Volume 9.5 fL (7.4-10.4); Monocytes # 1.1 10^3/uL (0.2-0.9); Monocytes % 10.6 %; Neutrophils % 67.8 %; Nucleated Red Blood Cells % 0.2 %; Platelet Count 416 10^3/cmm (130-400); Red Blood Count 3.51 10^6/uL (4.1-5.3); Red Cell Distribution Width 11.9 % (12.1-15.1); White Blood Count 10.6 10^3/uL (4.0-10.0)
[2022-06-24 10:10] LABS: Alanine Aminotransferase 40 U/L (0-41); Albumin Level 3.7 g/dL (3.5-5.2); Alkaline Phosphatase 61 U/L (40-130); Anion Gap 15.1 (5-19); Aspartate Amino Transferase 37 U/L (0-40); Blood Urea Nitrogen 11 mg/dL (6-20); Calcium 9.1 mg/dL (8.5-10.5); Carbon Dioxide 25 mmol/L (22-29); Chloride 97 mmol/L (98-107); Globulin 3.2 g/dL (1.3-4.6); Glomerular Filtration Rate 122.5 mL/min (90-130); Glucose 128 mg/dL (65-115); Osmolality Calculated 277 mOsm/kg (285-295); Potassium 4.1 mmol/L (3.5-5.1); Sodium 133 mmol/L (136-145); Total Bilirubin 0.2 mg/dL (0.15-1.2); Total Protein 6.9 g/dL (6.6-8.7)
== END 2022-06-24 11:06 | disposition home or self-care (01) ==
PROVIDERS: Emergency Provider Nurse Practitioner; PCP Orthopaedic Surgery
DX: R51.9 Headache, unspecified (principal)
CPT/HCPCS: 70450; 80053; 85025; 96374; 96375; 99285; J1100; J1885; J2360; J2405

== ENCOUNTER 2022-06-29 14:12 | Outpatient (CLI) | payer MEDICARE, OTHER, SELFPAY ==
--- NOTE | 2022-06-29 14:45 | USCV_ITS ---
Jefry Burnette Age: 42 Gender: M : 1980 Exam Date: 06/29/2022 14:28 Ordering Phys: Jake Goodman PA-C Technologist: Bipin Patel [place] [facility] [place]: left leg swelling and pain after surgery PROCEDURES: Venous duplex imaging was performed in only the left lower extremity. The following venous structures were evaluated: common femoral vein, profunda vein, proximal portion of the greater saphenous vein, superficial femoral vein, and the popliteal vein. In addition, the posterior tibial and peroneal trunk were evaluated. Serial compression, augmentation maneuvers, and spectral Doppler flow evaluation were performed. FINDINGS: Normal 2-D Doppler and augmentation and compressibility throughout the lower extremity venous structures. Additional imaging through the proximal calf veins also reveals no thrombus. Limited evaluation of the greater saphenous vein is patent with no thrombus.. CONCLUSIONS No evidence of left lower extremity DVT. Jeremie Marr MD (Electronically Signed) Final Date: 29 June 2022 16:27 S
== END 2022-06-29 14:13 | disposition home or self-care (01) ==
PROVIDERS: PCP Orthopaedic Surgery; Visit Provider Physician Assistant
DX: M79.89 Other specified soft tissue disorders (principal); Z98.890 Other specified postprocedural states
CPT/HCPCS: 93971; 99024

== ENCOUNTER → 2022-07-04 09:00 | Outpatient (BNVA) | payer MEDICARE, OTHER, SELFPAY | PROVIDERS: PCP Orthopaedic Surgery; Visit Provider Orthopaedic Surgery | DX: M79.662 Pain in left lower leg (principal); Z98.1 Arthrodesis status | CPT/HCPCS: 72100; 99024 ==

== ENCOUNTER 2022-07-06 13:22 | Outpatient (CLI) | payer MEDICARE, OTHER, SELFPAY ==
--- NOTE | 2022-07-06 16:00 | CT_ITS ---
WS: [email or web address] CT LUMBAR SPINE, noncontrast. HISTORY: increased pain, post operative L4/5, L5/S1 LUMBAR FUSION TECHNIQUE: Contiguous 2.5 mm axial imaging are performed. Sagittal and coronal reformats are submitte d and reviewed. All CT scans at [facility] use at least one of these dose optimization techni ques: automated exposure control; mA and/or kV adjustment per patient size (includes targeted exams w here dose is matched to clinical indication); or iterative reconstruction. IV contrast: None DLP: 945.10 mGy.cm COMPARISON: Prior lumbar spine radiographs 07/04/2022 Recent posterior lumbar fusion extends from L4 to S1. Bilateral pedicle screws with interbody spacers at L4-5 and L5-S1. No subsidence or migration identified. Vertical rods are intact. No hardware frac ture is identified. There is extensive postoperative soft tissue changes beginning at the L3 level extending to the sacru m. Large laminectomy defects at L4 and L5. Low-attenuation within the soft tissues posteriorly and ex tending into the laminectomy defects from the L3-4 disc level inferiorly to L5-S1. Without IV contras t cannot exclude abscess. These findings all may be acceptable for recent postoperative status. Fluid collections at the postoperative site may be resolving hematomas or postoperative seromas. Obviously abscess is not excluded. There are a few fragments from the bone grafting at the facet joints. L1-2: Normal. L2-3: Normal. L3-4: Bilateral ligamentum flavum hypertrophy. No high-grade stenosis. L4-5: Obliteration of the soft tissue planes due to recent post surgery. No central stenosis. Bilater al mild foraminal narrowing. L5-S1: Large posterior laminectomy defects. Central disc and nerve roots are obliterated by the posto perative changes. Visualized retroperitoneum is normal. CT/CT lumbar spine wo con* [id number] IMPRESSION: 1. Patient is status post posterior lumbar fusion with interbody spacers from L4 to S1. No hardware complication is identified. 2. There is extensive post operative changes within the soft tissues beginning at the L3-4 level through L5-S1. These may all be satisfactory for the recent postop status. Combination of edema, resolving hematoma and seroma are likely. Postoperative abscess would be included in the differential. Clinical evaluatio n is recommended. 3. Large posterior laminectomy defects at L4-5 and L5-S1.
== END 2022-07-06 13:23 | disposition home or self-care (01) ==
LOC: RAD 13:23
PROVIDERS: PCP Orthopaedic Surgery; Visit Provider Orthopaedic Surgery
DX: Z98.1 Arthrodesis status (principal)
CPT/HCPCS: 72131

== ENCOUNTER → 2022-07-13 12:55 | Outpatient (BNVA) | payer MEDICARE, OTHER, SELFPAY | PROVIDERS: PCP Orthopaedic Surgery; Visit Provider Orthopaedic Surgery | DX: Z47.89 Encounter for other orthopedic aftercare (principal); Z98.1 Arthrodesis status | CPT/HCPCS: 99024 ==

== ENCOUNTER → 2022-08-10 14:39 | Outpatient (BNVA) | payer MEDICARE, OTHER, SELFPAY | PROVIDERS: PCP Orthopaedic Surgery; Visit Provider Orthopaedic Surgery | DX: Z47.89 Encounter for other orthopedic aftercare (principal); Z98.1 Arthrodesis status | CPT/HCPCS: 72100; 99024 ==

== ENCOUNTER → 2022-09-21 14:38 | Outpatient (BNVA) | payer MEDICARE, OTHER, SELFPAY | PROVIDERS: PCP Orthopaedic Surgery; Visit Provider Orthopaedic Surgery | DX: Z47.89 Encounter for other orthopedic aftercare (principal); Z98.1 Arthrodesis status | CPT/HCPCS: 72100; 99024 ==

== ENCOUNTER → 2022-12-26 15:17 | Outpatient (BNVA) | payer MEDICARE, OTHER, SELFPAY | PROVIDERS: PCP Orthopaedic Surgery; Visit Provider Physician Assistant | DX: Z98.1 Arthrodesis status (principal); Z98.890 Other specified postprocedural states | CPT/HCPCS: 72100; 99213 ==

== ENCOUNTER 2023-01-31 11:29 | Outpatient (CLI) | payer MEDICARE, OTHER, SELFPAY ==
--- NOTE | 2023-01-31 12:15 | MR_ITS ---
WS: [email or web address] MRI CERVICAL SPINE with and without contrast HISTORY: Follow-up. Known spine cancer. No new symptoms. COMPARISON: 01/18/2022 Technique: Multiplanar, multisequence noncontrast imaging of the cervical spine. Postcontrast sequenc es, MultiHance 20 mL. Mild straightening of the normal cervical lordosis. There is mild disc bulging at C5-6 and C6-7 simil ar to the prior study. No high-grade central stenosis. No bone lesions or abnormal signal identified. Signal within the cervical cord is normal. Visualized posterior fossa is unremarkable. Craniocervical junction, C1 and C2 relationship, odontoid process and soft tissues are normal. C2-C3: Normal. C3-C4: Mild bilateral facet joint arthritis. Mild RIGHT foraminal stenosis. Normal LEFT foramen. C4-C5: No significant stenosis. Mild facet joint arthritis. C5-C6: Mild annular disc bulging with mild effacement of the ventral thecal sac. No stenosis. Mild fa cet arthritis. C6-C7: Mild disc bulging with a very small central disc protrusion. Similar to the prior study. Mild bilateral foraminal stenosis due to osteophyte and facet disease. C7-T1: Normal. Paraspinal soft tissue are normal. No areas of abnormal enhancement within the vertebral bodies or so ft tissues. No discitis or osteomyelitis. No epidural enhancement. IMPRESSION: 1. No evidence for metastatic disease to the cervical spine. 2. Mild disc bulging at C5-6 and C6-7. No interval change. 3. Very mild foraminal stenosis at C6-7 due to disc bulging and small osteophytes.
--- NOTE | 2023-01-31 13:00 | MR_ITS ---
WS: [email or web address] MRI THORACIC SPINE with and without contrast HISTORY: Follow-up, known cancer. Post resection tumor. COMPARISON: 01/18/2022 TECHNIQUE: Multiplanar sequences are performed in sagittal and axial planes. MultiHance 20 mL IV. Postoperative changes of the intramedullary tumor resection at T8-9 are reidentified. Laminectomy def ects are noted at T8 and T9. There is mild dorsal displacement of the thoracic cord which is probably due to arachnoid adhesions. There is a small amount of increased T2 signal within the cord itself borges ggesting myelomalacia. Increased T2 signal and mild atrophy extends over a length of 2.3 cm at the T9 level. Not progressed since the prior study. Otherwise cord signal is normal. Conus tapers normally. No enhancing lesions along the cord surface. Vertebral bodies are normal. No disc space narrowing. Paravertebral soft tissues are normal. Reidentified is a very small, shallow RIGHT paracentral disc p rotrusion at T9-10. No progression. IMPRESSION: 1. Status post resection intramedullary T9 ependymoma. Postsurgical changes are stable. 2. Reidentified is mild cord atrophy and myelomalacia at the T9 level which is stable. The dorsal kin deanne of the cord is stable at the T9 level. Probably due to arachnoid adhesions. 3. Very shallow RIGHT paracentral disc protrusion at T9-10 is unchanged. 4. No metastatic lesions identified.
--- NOTE | 2023-01-31 13:45 | MR_ITS ---
WS: [email or web address] MRI LUMBAR SPINE WITH AND WITHOUT CONTRAST HISTORY: Follow-up known spine cancer. No new symptoms. COMPARISON: 01/18/2022. TECHNIQUE: Sagittal and axial multisequence imaging is submitted. Postcontrast sequences, MultiHance 20 mL. New since the prior examination new lumbar fusion in the lower lumbar spine. Fusion hardware extends from L5-S2. Same numbering pattern will be used on today's MRI as on prior exams. Mild increase in the lumbar lordosis. Bilateral pedicle screws are noted from L5-S2. Interbody spacer s at L5-S1 and S1-S2. Disc spaces are otherwise well-maintained. Conus terminates normally at L1-2 disc level. L1-L2: Normal. L2-L3: Mild facet joint arthritis. No stenosis. L3-L4: Mild annular disc bulging and facet joint arthritis. Mild encroachment upon the ventral thecal sac with no stenosis. L4-L5: Diffuse annular disc bulging encroaching upon the ventral thecal sac. Mild bilateral facet torres nt arthritis. Very mild encroachment upon the subarticular recesses and ligamentum flavum hypertrophy . No high-grade stenosis. L5-S1: RIGHT hemilaminectomy defect. Mild annular disc bulging. There is new artifact from hardware o bscures some detail. No central stenosis. Mild RIGHT foraminal stenosis. S1-S2: Suspect there is also an posterior laminectomy defect. No central stenosis. Mild bilateral for aminal stenosis. Paravertebral soft tissues are normal. No enhancing masses are identified. IMPRESSION: 1. No evidence for metastatic disease to the lumbar spine or thecal sac. 2. Since the prior examination bilateral L5-S1 posterior fusion surgery has been performed. 3. Facet joint arthritis throughout the lumbar spine is unchanged. 4. Mild RIGHT foraminal stenosis at L5-S1. 5. Mild disc bulging at L4-5 with mild encroachment upon the subarticular recesses.
[2023-01-31] MEDS: gadobenate dimeglumine 20 mL vial IV (14:02)
== END 2023-01-31 11:30 | disposition home or self-care (01) ==
LOC: RAD 11:30
PROVIDERS: PCP Orthopaedic Surgery; Visit Provider Internal Medicine Medical Oncology
DX: C72.0 Malignant neoplasm of spinal cord (principal); Z98.1 Arthrodesis status; M47.816 Spondylosis without myelopathy or radiculopathy, lumbar region; M48.07 Spinal stenosis, lumbosacral region; M51.36 Other intervertebral disc degeneration, lumbar region; G95.89 Other specified diseases of spinal cord; M48.02 Spinal stenosis, cervical region; M50.322 Other cervical disc degeneration at C5-C6 level
CPT/HCPCS: 72156; 72157; 72158; A9577

== ENCOUNTER 2023-02-16 07:28 | Outpatient (CLI) | payer MEDICARE, OTHER, SELFPAY ==
--- NOTE | 2023-02-16 07:39 | MR_ITS ---
WS: [email or web address] EXAMINATION: MR elbow RT wo con* [id number] ORDER DATE: 02/16/2023 7:44 AM COMPARISON: None. HISTORY: R ELBOW PAIN CONTRAST: None. TECHNIQUE: Axial T1, axial T2 fat sat, coronal T1, coronal proton density fat sat, coronal STIR, sagi ttal proton density fat sat, and axial fat sat 3D performed. FINDINGS: Normal anatomic alignment. No significant bone marrow edema. No acute fractures. Radial head and neck are normal in appearance. Normal bone marrow signal in the olecranon. Normal normal lateral collater al ligament and common extensor tendon complex are normal in appearance. Soft tissue edema along the medial elbow. Fluid and edema involving the common flexor tendon exertion with a partial tear involvi ng the proximal tendon complex with fluid. No visualized avulsion fracture. Trace bone marrow edema i nvolving the medial epicondyle. Normal trochlea. Medial collateral ligament appears intact. Normal partially visualized biceps tendo n. Distal triceps appears intact. Small amount of soft tissue edema along the dorsal olecranon. Small amount of tendinopathy involving the distal triceps insertion. Suspected tiny interstitial tear in t he distal triceps at the insertion. IMPRESSION: 1. Partial high-grade tear involving the proximal common flexor tendon complex with associated fluid and edema. Trace bone marrow edema in the medial epicondyle. 2. Medial collateral ligament appears intact. 3. Common extensor tendon complex and lateral collateral ligament appear intact. 4. Suspected tiny interstitial tear in the distal triceps at the olecranon insertion. 5. No acute fractures.
== END 2023-02-16 07:29 | disposition home or self-care (01) ==
PROVIDERS: PCP Orthopaedic Surgery; Visit Provider Internal Medicine
DX: S56.211A Strain of other flexor muscle, fascia and tendon at forearm level, right arm, initial encounter (principal); X58.XXXA Exposure to other specified factors, initial encounter; M25.521 Pain in right elbow
CPT/HCPCS: 73221

== ENCOUNTER → 2023-03-13 08:45 | Outpatient (BNVA) | payer MEDICARE, OTHER, SELFPAY | PROVIDERS: PCP Orthopaedic Surgery; Visit Provider Physician Assistant | DX: S56.211A Strain of other flexor muscle, fascia and tendon at forearm level, right arm, initial encounter; X58.XXXA Exposure to other specified factors, initial encounter; Z46.89 Encounter for fitting and adjustment of other specified devices; S59.909D Unspecified injury of unspecified elbow, subsequent encounter; X58.XXXD Exposure to other specified factors, subsequent encounter | CPT/HCPCS: 97760; 99213; L3761 ==

== ENCOUNTER 2023-03-13 11:28 | Outpatient (CLI) | payer MEDICARE, OTHER, SELFPAY | END 2023-03-13 11:29 | disposition home or self-care (01) | LOC: SPT 11:29 | PROVIDERS: PCP Orthopaedic Surgery; Visit Provider Physician Assistant | DX: Z46.89 Encounter for fitting and adjustment of other specified devices (principal); S59.909D Unspecified injury of unspecified elbow, subsequent encounter; X58.XXXD Exposure to other specified factors, subsequent encounter | CPT/HCPCS: 97760; L3761 ==

== ENCOUNTER 2023-05-18 06:00 | Outpatient (RCR) | payer MEDICARE, OTHER, SELFPAY | END 2023-06-06 23:59 | disposition home or self-care (01) | LOC: SOT 06:00 | PROVIDERS: PCP Orthopaedic Surgery; Visit Provider Orthopaedic Surgery Adult Reconstructive Orthopaedic Surgery | DX: M77.02 Medial epicondylitis, left elbow (principal); M77.11 Lateral epicondylitis, right elbow | CPT/HCPCS: 97110; 97165; 97530 ==

== ENCOUNTER → 2023-06-29 08:40 | Outpatient (BNVA) | payer MEDICARE, OTHER, SELFPAY | PROVIDERS: PCP Internal Medicine; Visit Provider Orthopaedic Surgery | DX: M54.9 Dorsalgia, unspecified (principal); Z98.1 Arthrodesis status | CPT/HCPCS: 72100; 99213 ==

== ENCOUNTER 2023-08-08 07:25 | Outpatient (RCR) | payer MEDICARE, OTHER, SELFPAY | END 2023-09-04 23:59 | disposition home or self-care (01) | LOC: SPT 07:25 | PROVIDERS: PCP Internal Medicine; Visit Provider Orthopaedic Surgery | DX: M43.26 Fusion of spine, lumbar region (principal) | CPT/HCPCS: 97110; 97161 ==

== ENCOUNTER 2023-08-08 07:57 | Outpatient (RCR) | payer MEDICARE, OTHER, SELFPAY | END 2023-09-04 23:59 | disposition home or self-care (01) | LOC: SOT 07:57 | PROVIDERS: PCP Internal Medicine; Visit Provider Orthopaedic Surgery | DX: Z47.89 Encounter for other orthopedic aftercare (principal) | CPT/HCPCS: 97110; 97140; 97165; 97530 ==

== ENCOUNTER 2023-09-05 06:00 | Outpatient (RCR) | payer MEDICARE, OTHER, SELFPAY | END 2023-09-11 23:59 | disposition home or self-care (01) | LOC: SPT 06:00 | PROVIDERS: PCP Internal Medicine; Visit Provider Orthopaedic Surgery | DX: M54.50 Low back pain, unspecified (principal); M62.81 Muscle weakness (generalized) | CPT/HCPCS: 97110 ==

== ENCOUNTER → 2023-09-13 07:59 | Outpatient (BNVA) | payer MEDICARE, OTHER, SELFPAY | PROVIDERS: PCP Internal Medicine; Visit Provider Orthopaedic Surgery | DX: Z98.1 Arthrodesis status (principal) | CPT/HCPCS: 72100; 99213 ==

== ENCOUNTER 2023-12-27 09:07 | Outpatient (CLI) | payer MEDICARE, OTHER, SELFPAY ==
--- NOTE | 2023-12-27 09:30 | MR_ITS ---
WS: [email or web address] MRI THORACIC SPINE WITH CONTRAST TECHNIQUE: Sagittal T1, T2 and STIR imaging. Axial T2 imaging. Post gadolinium imaging was obtained. 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 No acute compression fractures. No high-grade central canal stenosis. Disc space heights and vertebral body heights are well-maintained. No enhancing lesions within the th oracic canal or dorsal/epidural space. No enhancing bony lesions. Prior postoperative changes decompressive laminectomies for intramedullary ependymoma tumor resection at the T8-T9 level. Associated myelomalacia in the thoracic cord is unchanged compared to the prior examinations. No evidence of new enhancing recurrent or residual disease. Cord signal is otherwise no rmal. Stable dorsal displacement of the thoracic cord with dorsal kinking suspicious for arachnoid adhesion s unchanged. Stable tiny RIGHT pericentral protrusion T9-T10 with slight narrowing of the RIGHT subarticular reces s. Mild to moderate facet arthropathy in the lower thoracic spine. Adrenal glands are normal. Normal GE junction. Normal caliber thoracic aorta. MR/MR thoracic spine wo/w [id number] IMPRESSION: 1. No significant change compared to previous. 2. Stable postoperative changes resection of the T9 intramedullary ependymoma with wide laminectomy defects. No evidence of recurrent or progressive disease. 3. Stable myelomalacia within the thoracic cord with dorsal kinking. This is s uspicious for arachnoid adhesion unchanged. 4. No other significant changes compared to previous.
--- NOTE | 2023-12-27 10:15 | MR_ITS ---
WS: [email or web address] MRI LUMBAR SPINE WITHOUT AND WITH GADOLINIUM ENHANCEMENT. TECHNIQUE: Sagittal T1, T2 and STIR imaging. Axial T1 and T2 imaging. Post gadolinium imaging was obt ained. CLINICAL INFORMATION: malignangt neopplasm of spinal cord COMPARISON: 2022 FINDINGS: Mild lumbar curve. No acute compression. No high-grade central canal stenosis. Pedicle screw fixation L4-L5 and L5-S1 with interbody fusion grafts and decompressive laminectomy defects. No acute nanci tamiko fractures. No abnormal gadolinium enhancement. No evidence of drop metastasis. L1-L2: Mild facet arthropathy. Spinal canal and foramen are patent. L2-L3: No significant disc bulging. Mild facet arthropathy. Spinal canal and foramen are patent. L3-L4: Mild annular bulging. Moderate facet arthropathy. Mild LEFT greater than RIGHT bony foraminal narrowing. Spinal canal is patent. L4-L5: Pedicle screw fixation with interbody fusion graft and laminectomy defects. Spinal canal and f oramen are patent. L5-S1: Pedicle screw fixation with interbody fusion graft. Laminectomy defects. Spinal canal and fora men are patent. Visualized pelvic bony structures: Normal. Paravertebral soft tissues: Normal. MR/MR lumbar spine wo/w con [id number] IMPRESSION: 1. No significant change compared to previous. 2. No evidence of enhancing drop metastasis from prior ependymoma resection. 3. Stable bilateral pedicle screw fixation with interbody fusion L4-L5 and L5- S1. Associated laminectomy defects.
--- NOTE | 2023-12-27 11:00 | MR_ITS ---
WS: [email or web address] MRI CERVICAL SPINE NONCONTRAST TECHNIQUE: Sagittal T1, T2 and STIR imaging. Axial T2, gradient, and fiesta imaging. 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 Cord signal is normal. No significant central canal st enosis. No enhancing lesions in the cervical spine or canal. Mild disc bulging worse at C6-7 similar to previous. C2-C3: Mild facet arthropathy. C3-C4: Mild facet arthropathy. Mild RIGHT and no significant LEFT foraminal narrowing. Spinal canal i s patent. C4-C5: Mild to moderate facet arthropathy. Mild RIGHT foraminal narrowing. Spinal canal is patent. C5-C6: No significant disc bulging. Moderate facet arthropathy. Spinal canal is patent. Mild RIGHT fo raminal narrowing. C6-C7: Mild disc bulge with osteophytic ridging. Moderate bilateral bony foraminal narrowing LEFT gre ater than RIGHT. Uncovertebral joint hypertrophy. Mild facet arthropathy. Spinal canal is patent. C7-T1: Mild RIGHT and no significant LEFT foraminal narrowing. Spinal canal is patent. Visualized brain stem structures: Normal. Prevertebral soft tissues: Normal. MR/MR cervical spine wo/w [id number] IMPRESSION: 1. No evidence of metastatic disease in the cervical spine. 2. Mild spondylitic changes. 3. Overall no remarkable changes compared to previous.
[2023-12-27] MEDS: gadobenate dimeglumine 5 mL vial IV (11:07)
== END 2023-12-27 09:08 | disposition home or self-care (01) ==
LOC: RAD 09:08
PROVIDERS: PCP Internal Medicine; Visit Provider Internal Medicine Medical Oncology
DX: C72.0 Malignant neoplasm of spinal cord (principal); M25.78 Osteophyte, vertebrae; M47.892 Other spondylosis, cervical region
CPT/HCPCS: 72156; 72157; 72158; A9577

== ENCOUNTER 2024-06-27 21:42 | Emergency (ER) | payer MEDICARE, OTHER, SELFPAY ==
--- NOTE | 2024-06-27 21:39 | ECG_ITS ---
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
[2024-06-27 21:45] VITALS: BP 149/105; PULSE 87; RESP 20; O2SAT 96; BMI 28.0
--- NOTE | 2024-06-27 21:46 | XRR_ITS ---
PROCEDURE INFORMATION: Exam: XR Chest Exam date and time: 06/27/2024 9:52 PM Age: 44 years old Clinical indication: Other: Syncope TECHNIQUE: Imaging protocol: Radiologic exam of the chest. Views: 1 view. COMPARISON: MR thoracic spine wo/w [id number] 12/27/2023 10:44 AM FINDINGS: Lungs: Unremarkable. No consolidation. Pleural spaces: Unremarkable. No pleural effusion. No pneumothorax. Heart/Mediastinum: Unremarkable. No cardiomegaly. Bones/joints: Unremarkable. XR/XR chest 1V portable [id number] IMPRESSION: No acute findings.
--- NOTE | 2024-06-27 21:51 | W.ED.CHESTPA ---
HPI - Chest Pain General: Chief Complaint: Chest Pain Stated Complaint: cp Time Seen by Provider: 06/27/24 21:46 History of Present Illness: Patient presents to the ER by EMS with complaints of syncope pale diaphoresis and possible chest pain. Patient said he just does not feel good all over is really remember what happened about him passing out. He does want to be here EMS and his parents had to convince him to come. Patient has no cardiac history. Related Data Home Medications ?Medication ?Instructions ?Recorded ?Confirmed acetaminophen 325 mg tablet 325 mg PO QID PRN Pain 12/23/21 09/13/23 (Tylenol) docusate sodium 100 mg capsule 100 mg PO DAILY PRN Constipation 12/23/21 09/13/23 (Dulcolax Stool Softener (docusate)) ibuprofen 200 mg tablet 200 mg PO Q6H PRN Pain 12/23/21 09/13/23 Held on 06/20/22. Instructions: Resume on 07/15/22. pregabalin 100 mg capsule (Lyrica) 100 mg PO BID 12/23/21 09/13/23 sennosides 8.6 mg tablet (senna) 8.6 mg PO DAILY PRN Constipation 12/23/21 09/13/23 sertraline 50 mg tablet (Zoloft) 50 mg PO DAILY 12/23/21 09/13/23 sildenafil (pulm.hypertension) 20 See Rx Instructions PO DAILY PRN 12/23/21 09/13/23 mg tablet Hypertension hydroxyzine HCl 25 mg tablet 20 mg PO PRN PRN Anxiety 06/12/22 09/13/23 Previous Rx's ?Medication ?Instructions ?Recorded ketoconazole 2 % shampoo 1 applic topical .2x weekly #120 mL 06/13/22 sennosides 8.6 mg-docusate sodium 1 tab-cap PO BID #30 tabs 06/24/22 50 mg tablet (Senna with Docusate Sodium) tizanidine 4 mg capsule 4 mg PO Q8H #30 caps 06/24/22 clobetasol 0.05 % topical foam 1 applic topical BID #100 grams 09/04/22 triamcinolone acetonide 0.1 % 1 applic topical BID #80 grams 09/04/22 topical ointment HINGED ELBOW BRACE. #1 ea 03/13/23 Allergies Allergy/AdvReac Type Severity Reaction Status Date / Time No Known Allergies Allergy Verified 09/13/23 08:02 Review of Systems General: Reports: 10 or more systems reviewed and unremarkable except in HPI and below PFSH ED PFSH: Medical History Erectile dysfunction Anxiety and depression Neuropathic pain Chronic lower back pain Chronic migraine Ependymoma of spinal cord History of pneumothorax Surgical History History of tonsillectomy History of chest tube placement Due to spontaneous pneumothorax History of spinal surgery (02/11/18) Complete laminectomy with bilateral foraminotomies at T9 and hemilaminectomy with bilateral foraminotomies at T8 and T10 with excision of intraspinal neoplasm History of laminectomy (02/2017) L4 & L5 Family History Father CAD (coronary artery disease) Grandfather CAD (coronary artery disease) Other Cancer Dementia Hyperlipidemia Hypertension Denies family history of Clotting disorder Psychiatric illness Chronic kidney disease (CKD) Suicide Anesthesia complication Bleeding disorder Lung disease Stroke Social History Smoking and tobacco/nicotine status: never used tobacco/nicotine Alcohol intake: current Alcohol intake frequency: few times a week Physical Exam HENMT: COMMON NORMALS: normocephalic, atraumatic, hearing grossly normal bilaterally, external ears normal, Normal external nose present, moist oral mucous membranes and oropharynx normal HEAD & SCALP: normocephalic and atraumatic NOSE: Normal external nose present EXTERNAL EAR: Yes external ears normal Neck/C-Spine: COMMON NORMALS: no JVD Chest: COMMONS NORMALS: normal inspection of the chest and normal palpation of entire chest wall Resp: COMMON NORMALS: normal respiratory effort, No retractions, No use of accessory muscles and clear to auscultation bilaterally AUSCULTATION: clear to auscultation bilaterally Cardio: COMMON NORMALS: no JVD, regular rate, regular rhythm, S1 normal heart sound present, S2 normal heart sound present, No gallops present (Cardio), No clicks present (Cardio), No murmurs present (Cardio) and No rub (Cardio) RATE: regular rate RHYTHM: regular rhythm HEART SOUNDS: S1 normal heart sound present and S2 normal heart sound present GI: COMMON NORMALS: Normal to inspection, nondistended, normoactive bowel sounds present, Soft to palpation, non-tender, No hepatosplenomegaly present and no masses PALPATION: Yes Soft to palpation and Yes No hepatosplenomegaly present Course Vital Signs: Vital signs: Vital Signs Pulse Rate 83 06/27/24 23:54 Respiratory Rate 21 H 06/27/24 23:54 Blood Pressure 121/86 06/27/24 23:54 Pulse Oximetry 94 06/27/24 23:54 Oxygen Delivery Me thod Nasal Cannula 06/27/24 22:00 Oxygen Flow Rate 1 06/27/24 22:00 MDM - Chest Pain Medical Decision Making Chest x-ray was negative, lab work essentially benign except increased ethanol of 115, initial troponin 8, 2-hour troponin 11.5 for delta of 3.5, patient refused to give us urine or COVID swab. Patient was antsy and wanted to be discharged. Patient be discharged. Medical Records I reviewed the patient's medical records. Lab Data I reviewed the patient's lab results. 06/27/24 21:50 06/27/24 21:50 Radiology Impressions Chest X-Ray 06/27/24 21:46 IMPRESSION: No acute findings. Laboratory Results WBC 9.03 10^3/uL (3.29-11.43) 06/27/24 21:50 RBC 4.86 10^6/uL (3.85-5.65) 06/27/24 21:50 Hgb 15.80 g/dL (11.27-16.99) 06/27/24 21:50 Hct 46.2 % (37-53) 06/27/24 21:50 MCV 95.1 fl (82-101) 06/27/24 21:50 MCH 32.5 pg (27-33) 06/27/24 21:50 MCHC 34.2 g/dL (30-55) 06/27/24 21:50 RDW 11.9 % (12.1-15.1) L 06/27/24 21:50 Plt Count 328 10^3/cmm (157-399) 06/27/24 21:50 MPV 9.1 fL (7.4-10.4) 06/27/24 21:50 Neut % (Auto) 60.5 % 06/27/24 21:50 Lymph % (Auto) 27.5 % 06/27/24 21:50 [place] % (Auto) 8.4 % 06/27/24 21:50 Eos % (Auto) 2.2 % 06/27/24 21:50 Baso % (Auto) 1.0 % 06/27/24 21:50 Neut # (Auto) 5.46 10^3/uL (1.8-7.7) 06/27/24 21:50 Lymph # (Auto) 2.5 10^3/uL (0.8-4.8) 06/27/24 21:50 [place] # (Auto) 0.8 10^3/uL (0.2-0.9) 06/27/24 21:50 Eos # (Auto) 0.2 10^3/uL (0.0-0.8) 06/27/24 21:50 Baso # (Auto) 0.1 10^3/uL (0.0-0.1) 06/27/24 21:50 Nucleated RBC % (auto) 0 % 06/27/24 21:50 Nucleated RBCs # 0.0 /100WBC 06/27/24 21:50 PT 12.00 SECONDS (12.1-14.9) L 06/27/24 21:50 INR 0.83 (0.8-1.2) 06/27/24 21:50 Sodium 139 mmol/L (136-145) 06/27/24 21:50 Potassium 3.7 mmol/L (3.5-5.1) 06/27/24 21:50 Chloride 106 mmol/L (98-107) 06/27/24 21:50 Carbon Dioxide 17 mmol/L (22-29) L 06/27/24 21:50 Anion Gap 19.7 (5-19) H 06/27/24 21:50 BUN 10 mg/dL (6-20) 06/27/24 21:50 Creatinine 0.7 mg/dL (0.7-1.2) 06/27/24 21:50 GFR Calculation 121.4 mL/min (90-130) 06/27/24 21:50 Glucose 154 mg/dL (65-115) H 06/27/24 21:50 Calculated Osmolality 290 mOsm/kg (285-295) 06/27/24 21:50 Calcium 9.0 mg/dL (8.5-10.5) 06/27/24 21:50 Magnesium 2.1 mg/dL (1.7-2.3) 06/27/24 21:50 Total Bilirubin 0.2 mg/dL (0.15-1.2) 06/27/24 21:50 AST 21 U/L (0-40) 06/27/24 21:50 ALT 24 U/L (0-41) 06/27/24 21:50 Alkaline Phosphatase 82 U/L (40-130) 06/27/24 21:50 Troponin T Baseline 8 ng/L (0-15) 06/27/24 21:50 Troponin T 120 Minute 11.51 ng/L (0-15) 06/27/24 23:37 Delta Troponin T 3.51 ABS# (0-10) 06/27/24 23:37 Total Protein 6.4 g/dL (6.6-8.7) L 06/27/24 21:50 Albumin 4.1 g/dL (3.5-5.2) 06/27/24 21:50 Globulin 2.3 g/dL (1.3-4.6) 06/27/24 21:50 Ethyl Alcohol 115 mg/dL (0-10) H 06/27/24 21:50 All radiology interpretation(s) finalized by discharge Discharge Plan Discharge Patient Disposition: Home Clinical Impression: Syncope Qualifiers: Syncope type: unspecified Qualified Code(s): R55 - Syncope and collapse Alcohol intoxication Qualifiers: Complication of substance-induced condition: uncomplicated Qualified Code(s): F10.920 - Alcohol use, unspecified with intoxication, uncomplicated Condition: Stable Prescriptions: No Action pregabalin [Lyrica] 100 mg capsule 100 mg PO BID sertraline [Zoloft] 50 mg tablet 50 mg PO DAILY ibuprofen 200 mg tablet 200 mg PO Q6H PRN (Reason: Pain) acetaminophen [Tylenol] 325 mg tablet 325 mg PO QID PRN (Reason: Pain) docusate sodium [Dulcolax Stool Softener (dss)] 100 mg capsule 100 mg PO DAILY PRN (Reason: Constipation) sennosides [senna] 8.6 mg tablet 8.6 mg PO DAILY PRN (Reason: Constipation) sildenafil (pulm.hypertension) 20 mg tablet See Rx Instructions PO DAILY PRN (Reason: Hypertension) Rx Instructions: 1 to 5 tablets orally daily PRN; administer doses at least 4-6 hours apart (DME) HINGED ELBOW BRACE. See Rx Instructions .ROUTE .MEDSUPPLY Qty: 1 0RF Rx Instructions: As directed ketoconazole 2 % shampoo 1 applic topical .2x weekly Qty: 120 6RF Rx Instructions: Lather into scalp 2-3 times weekly. Allow to sit on scalp for 5 minutes before rinsing. triamcinolone acetonide 0.1 % ointment 1 applic topical BID Qty: 80 1RF Rx Instructions: Apply to affected areas twice daily for 2 weeks alternating with clobetasol clobetasol 0.05 % foam 1 applic topical BID Qty: 100 3RF Rx Instructions: Apply twice daily to affected areas on scalp as needed hydroxyzine HCl 25 mg tablet 20 mg PO PRN PRN (Reason: Anxiety) tizanidine 4 mg capsule 4 mg PO Q8H Qty: 30 0RF Senna with Docusate Sodium 8.6-50 mg tablet 1 tab-cap PO BID Qty: 30 0RF Discharge Orders: Discharge ED (Routine); Ordered 06/28/24 Ordered By: Prince Adkins Referrals: Chris Fontanez DO [Primary Care Provider] - 1 week Patient Instructions: Alcohol Intoxication, Syncope Activity Restrictions/Additional Instructions: Activity restrictions/additional instructions: Thank you for choosing [facility] for your healthcare needs today. Please realize that you were seen in the emergency department and that we are providing you with an emergency medical screening exam and this may not be a complete and all exclusive of all testing and/or medical workup we may need to determine your element or severity of your illness. It is very important that you follow-up as instructed with your primary care provider or specialist for the additional evaluation and to discuss your medical treatment plan. You may return to the emergency department should you have concerns or if your condition changes or worsens in any way. Print Language: Belarusian Coding Level of Care Code ED Event Manager for Gayathri Norton
[2024-06-27 21:55] LABS: Basophils # 0.1 10^3/uL (0.0-0.1); Eosinophils # 0.2 10^3/uL (0.0-0.8); Eosinophils % 2.2 %; Hematocrit 46.2 % (37-53); Lymphocytes # 2.5 10^3/uL (0.8-4.8); Lymphocytes % 27.5 %; Mean Corpuscular HGB Conc 34.2 g/dL (30-55); Mean Corpuscular Hemoglobin 32.5 pg (27-33); Mean Corpuscular Volume 95.1 fl (82-101); Mean Platelet Volume 9.1 fL (7.4-10.4); Monocytes # 0.8 10^3/uL (0.2-0.9); Monocytes % 8.4 %; Neutrophils # 5.46 10^3/uL (1.8-7.7); Neutrophils % 60.5 %; Nucleated Red Blood Cells % 0 %; Platelet Count 328 10^3/cmm (157-399); Red Blood Count 4.86 10^6/uL (3.85-5.65); Red Cell Distribution Width 11.9 % (12.1-15.1); White Blood Count 9.03 10^3/uL (3.29-11.43)
[2024-06-27 22:00] VITALS: BP 116/89; PULSE 87; RESP 18; O2SAT 95
[2024-06-27 22:04] LABS: INR 0.83 (0.8-1.2)
[2024-06-27 22:12] LABS: Alanine Aminotransferase 24 U/L (0-41); Albumin Level 4.1 g/dL (3.5-5.2); Alcohol Level 115 mg/dL (0-10); Alkaline Phosphatase 82 U/L (40-130); Blood Urea Nitrogen 10 mg/dL (6-20); Carbon Dioxide 17 mmol/L (22-29); Chloride 106 mmol/L (98-107); Creatinine Clr Calc Pharmacy 143.4119; Globulin 2.3 g/dL (1.3-4.6); Glomerular Filtration Rate 121.4 mL/min (90-130); Glucose 154 mg/dL (65-115); Magnesium 2.1 mg/dL (1.7-2.3); Osmolality Calculated 290 mOsm/kg (285-295); Sodium 139 mmol/L (136-145); Total Bilirubin 0.2 mg/dL (0.15-1.2); Total Protein 6.4 g/dL (6.6-8.7)
[2024-06-27 22:13] LABS: Troponin(5th) Baseline 8 ng/L (0-15)
[2024-06-27 22:15] LABS: Anion Gap 19.7 (5-19); Aspartate Amino Transferase 21 U/L (0-40); Potassium 3.7 mmol/L (3.5-5.1)
[2024-06-27 23:54] VITALS: BP 121/86; PULSE 83; RESP 21; O2SAT 94
--- NOTE | 2024-06-27 23:54 | PC.NURSE ---
pt refused ua and pcr swab.
[2024-06-28 00:10] LABS: Troponin 5 2HR 11.51 ng/L (0-15); Troponin 5 2HR Delta 3.51 ABS# (0-10)
[2024-06-28 01:35] VITALS: BP 130/60; PULSE 88; RESP 18; O2SAT 92
== END 2024-06-28 01:38 | disposition home or self-care (01) ==
PROVIDERS: Emergency Provider Emergency Medicine; PCP Internal Medicine
DX: R55 Syncope and collapse (principal); F10.920 Alcohol use, unspecified with intoxication, uncomplicated; Y90.5 Blood alcohol level of 100-119 mg/100 ml
CPT/HCPCS: 36415; 71045; 80053; 80307; 83735; 84484; 85025; 85610; 93005; 99285

== ENCOUNTER 2024-11-29 11:50 | Emergency (ER) | payer MEDICARE, OTHER, SELFPAY ==
--- NOTE | 2024-11-29 11:51 | XRR_ITS ---
PROCEDURE INFORMATION: Exam: XR Right Hand Exam date and time: 11/29/2024 12:06 PM Age: 44 years old Clinical indication: Injury or trauma; Other: Hit table; Blunt trauma (contusions or hematomas); Hand; Right TECHNIQUE: Imaging protocol: Radiologic exam of the right hand. Views: 3 or more views. COMPARISON: No relevant prior studies available. FINDINGS: Bones/joints: Minimally-displaced fracture through the neck of the 5th metacarpal. Soft tissues: Normal. XR/XR hand RT min 3V* [id number] IMPRESSION: Boxer's fracture.
--- OUTSIDE RECORDS SUMMARY | 2024-11-29 11:55 | XMS_ITS | Patient Health Record ---
Author Organization [facility] Address [address] [place], [place] [id number] Care Team Providers Care Human Resources Representative Name Role Phone Chris Fontanez DO Primary Care Provider Sandra Blunt MD, Alberto Unavailable [phone] Reason For Referral No Information Medications Medication SIG (Take, Route, Frequency, Duration) Notes Start Date End Date Status TiZANidine Hydrochloride 2 mg 1 tab po orally TID prn spasm Active oxyCODONE 5 mg 1 tab po orally QID prn pain (hold within 4H of planned sleep) Active gabapentin 600 mg 1 tab po orally TID Active acetaminophen 325 mg 2 tabs orally every 4 hours Active Aleve PM as directed Active Social History Tobacco Use: Social History Observation Description Date Details (start date - stop date) Former Smoker NA - NA alcohol Question Answer Notes Did you have a drink contain ing alcohol in the past year? Yes How often did you have a dri nk containing alcohol in the past year? Two to three times per week (3 points) How many drinks did you have on a typical day when you were drinking in the past year? 1 or 2 (0 points) How often did you have six o r more drinks on one occasion in the past year? Never (0 points) Points 3 Interpretation Negative Tobacco use: Question Answer Notes : former smoker How long has it been since you last smoked? 1-5 years Problems Problem Type SNOMED Code ICD Code Onset Dates Problem Status W/U Status Risk Notes Problem Low back pain (051161649) Low back pain (M54.5) Active confirmed Problem Lumbosacral spondylosis without myelopathy (05758083) Spondylosis without myelopathy or radiculopathy, lumbar region (M47.816) Active confirmed Problem Hypersomnia (13414693) Hypersomnia, unspecified (G47.10) Active confirmed Problem Sleep disorder (60937590) Other sleep disorders (G47.8) Active confirmed Problem Acquired spondylolisthesis (417755297) Spondylolisthesis , lumbosacral region (M43.17) Active confirmed Problem Radiculopathy due to lumbar intervertebral disc disorder (512192533622676) Intervertebral disc disorders with radiculopathy, lumbar region (M51.16) Active confirmed Problem Post-laminectomy syndrome (69958669) Postlaminectomy syndrome, not elsewhere classified (M96.1) Active confirmed Problem Radiology result abnormal (254498110) Abnormal findings on diagnostic imaging of other parts of musculoskeletal system (R93.7) Active confirmed Problem Diagnostic imaging inconclusive due to excess body fat of patient (R93.9) Active confirmed Problem Long-term current use of drug therapy (572832769) Other longterm (current) drug therapy (Z79.899) Active confirmed Plan Of Treatment No Information Medical (General) History Medical History History ICD Code 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 Spontaneous pneumothorax Cervicalgia Migraine, cervicogenic Anxiety disorder Anal fissure Cervical nerve root impingement Hypercholecsterolemia Prostatitis Perirectal cyst Abdominal pain Hyperhidrosis Acute urinary retention Hematochezia Post traumatic migraine Bulging disc C3-C5 and L5 Surgical History Surgery Date(Month/Year) Tonsillectomy, 1982 Chest tube for spontaneous pneumothorax, 2005 Colonoscopy with polypectomy, 11/14/12, 08/15/17 L4-5 laminectomy (possible L 5-S1 laminectomy if S1 is considered a lumbarized, transitional vertebra - see MRI report), performed at [facility] in [place], [place] by Dr. Renee, 02/2017 Hospitalization History Reason Date(Month/Year) Ehrlichiosis (tick fever), 2007
--- OUTSIDE RECORDS SUMMARY | 2024-11-29 11:55 | XMS_ITS | Clinical Summary ---
Author Organization [facility] Administrative Offices Address [address] [place] [id number] Care Team Providers Care Channel Specialist Name Role Phone Unavailable Primary Care Provider Unavailabl e Allergies No known active allergies Medications pregabalin (LYRICA) 100 mg Capsule Take 100 mg by mouth 2 times daily. 02/07/2023 Active Clobetasol 0.05 % Foam 01/15/2023 Active sertraline (ZOLOFT) 50 mg tablet Take 50 mg by mouth daily. 04/08/2023 Active acetaminophen (TYLENOL) 500 mg tablet Take 500 mg by mouth every 6 hours as needed. Active Active Problems Problem Noted Date Diagnosed Date Medial epicondylitis of elbow, right 06/29/2023 Right carpal tunnel syndrome 06/29/2023 Cubital tunnel syndrome on right 06/29/2023 Ulnar tunnel syndrome of right wrist 06/29/2023 Encounters Date Type Department Care Team Description 10/07/2024 External Device Data [facility] Provider, Abstract 09/23/2024 External Device Data [facility] Provider, Abstract from Last 3 Months Social History Tobacco Use Types Packs/Day Years Used Date Smoking Tobacco: Former Cigarettes Smokeless Tobacco: Never Tobacco Cessation:Counseling Given: Not Answered Alcohol Use Standard Drinks/Week Comments Not Currently 2 (1 standard drink = 0.6 oz pur e alcohol) occ. Sex and Gender Information Value Date Recorded Sex Assigned at Not on file Legal Sex Male 12:10 PM CORDUROY BRUSHER OPERATOR Gender Identity Not on file Sexual Orientation Not on file Last Filed Vital Signs Vital Sign Reading Time Taken Comments Blood Pressure 120/80 11/05/2023 1:34 PM CDT Pulse 100 07/12/2023 2:35 PM CORDUROY BRUSHER OPERATOR Temperature 36.7 C (98 F) 07/12/2023 1:50 PM CORDUROY BRUSHER OPERATOR Respiratory Rate 16 07/12/2023 2:35 PM CORDUROY BRUSHER OPERATOR Oxygen Saturation 93% 07/12/2023 2:35 PM CORDUROY BRUSHER OPERATOR Inhaled Oxygen Concentration - - Weight 99.8 kg (220 lb) 11/05/2023 1:34 PM CDT Height 175.3 cm (5' 9 ) 11/05/2023 1:34 PM CDT Body Mass Index 32.49 11/05/2023 1:34 PM CDT Plan of Treatment Health Maintenance Due Date Last Done Comments DTAP/TDAP/TD VACCINES (1 - Tdap) 1997 HEPATITIS B VACCINES (1 of 3 - 19+ 3-dose series) 1997 COLORECTAL SCREENING 2023 Colorectal Cancer Screening 2023 FIT-DNA Q 3 years 2023 FIT/FOBT Q 1 year 2023 Flex Sig/CT Colonography Q 5 years 2023 INFLUENZA VACCINE (#1) 2024 HPV VACCINES Aged Out No longer eligi ble based on patient's age to complete this topic Insurance MEDICARE PART A AND B [facility]
--- OUTSIDE RECORDS SUMMARY | 2024-11-29 11:55 | XMS_ITS | Data Portability ---
Author Organization [facility] Eduardo Ugarte [facility] Address [address] [address] Assessment No assessment recorded. Plan of Treatment Reminders Order Date Submit Date Provider Last Modified By Organization Details Last Modified Time Details Appointments ACUTE VISIT 2024 11:00A M WALK-IN Not available Not available Not available Lab HbA1c (hemoglob in A1c), blood 2023 024 [facility] ([facility]), [address] [place] [address], [address], 07/09/2023 10:45:43 CMP, serum or plasma 2023 024 [facility], 5 [facility], [address], [address], 07/09/2023 11:00:21 lipid panel, blood 2023 024 [facility], [address], [address], 07/09/2023 11:01:33 CBC 2023 024 [facility], 5 [facility], [address], [address], 07/09/2023 11:01:37 TSH, serum or plasma 2023 024 [facility] ([facility]), [address] [place], [address], 07/09/2023 11:17:49 Referral None recorded. Procedures None recorded. Surgeries None recorded. Imaging XR, elbow, 3 or more view [address] ([facility]), [address] [place], [address], 02/13/2023 08:08:07 MRI, elbow, w/o contrast [address] (Scheduling Orders), [address] [place], [address], 02/15/2023 13:45:46 Medication Orders sertralin e 100 mg tablet 2023 024 [facility], [address] [facility], [place], [address], 07/09/2023 09:54:27 Patient TargetsNo targets recorded. Patient Instructions Encounter Date Encounter Id Patient Instructions Last Modified By Organization Details Last Modified Time 02/12/2023 [id number] Suspect torn tendon at elbow two months ago. Weak, poor functioning. Xray now, but will need MRI [email or web address] Not available 02/12/2023 11:06:41 07/09/2023 [id number] surgery on right elbow and carpal tunnel on lots of struggle with stress; not sleeping; double zoloft labs today working on diet and lost 25 pounds on low carb diet lots of pain; had fusion with Dr. Musa a year ago, but has not completely relieved symptoms [email or web address] Not available 07/09/2023 09:49:47 Reason for Referral None Reported. Results Created Date Observation Date Name Description Value Unit Range Abnormal Flag Note LastModifiedBy Organization Detail LastModifiedTime 07/09/19 24 07/09/2023 CMP (MALE ) glucose 105.0 mg/dL 60.0-9 9.0 high Not Available [facility] [address], [place], [address], 07/09/2023 11:00:21 07/09/19 24 07/09/2023 CMP (MALE ) BUN (blood urea nitrogen) 19.0 mg/dL 10.0-2 6.0 Not Available [facility] [address] [facility], [place], [address], 07/09/2023 11:00:21 07/09/19 24 07/09/2023 CMP (MALE ) creatinine (serum) 0.7 mg/dL 0.4-1. 5 Not Available [facility] [address] [facility], [place], [address], 07/09/2023 11:00:21 07/09/19 24 07/09/2023 CMP (MALE ) BUN/creatini ne ratio 27.54 ratio Not Available [address] [address], [place], [address], 07/09/2023 11:00:21 07/09/19 24 07/09/2023 CMP (MALE ) eGFR calculated 131.8 Not Available [facility] [address] [address], [place], [address], 07/09/2023 11:00:21 07/09/19 24 07/09/2023 CMP (MALE ) total protein 7.5 g/dL 6.0-8. 5 Not Available [address] [address], [place], [address], 07/09/2023 11:00:21 07/09/19 24 07/09/2023 CMP (MALE ) total bilirubin 0.4 mg/dL 0.2-1. 3 Not Available [facility] [address] [address], [place], [address], 07/09/2023 11:00:21 07/09/19 24 07/09/2023 CMP (MALE ) albumin 4.6 g/dL 3.5-5. 5 Not Available [facility] [address] [facility], [place], [address], 07/09/2023 11:00:21 07/09/19 24 07/09/2023 CMP (MALE ) globulin 2.9 calc Not Available [facility] [address] [facility], [place], [address], 07/09/2023 11:00:21 07/09/19 24 07/09/2023 CMP (MALE ) AST (SGOT) 30.0 U/L 0.0-46 .0 Not Available [facility] [address] [facility], [place], [address], 07/09/2023 11:00:21 07/09/19 24 07/09/2023 CMP (MALE ) altv (SGPT) 35.0 U/L 13.0-6 9.0 normal Not Available [facility] [address] [facility], [place], [address], 07/09/2023 11:00:21 07/09/19 24 07/09/2023 CMP (MALE ) A/G ratio 1.6 ratio Not Available [facility] [address] [facility], [place], [address], 07/09/2023 11:00:21 07/09/19 24 07/09/2023 CMP (MALE ) ALP phos 80.0 U/L 30.0-1 40.0 normal Not Available [facility] [address] [facility], [place], [address], 07/09/2023 11:00:21 07/09/19 24 07/09/2023 CMP (MALE ) calcium 9.4 mg/dL 8.4-10 .5 Not Available [facility] [address] [facility], [place], [address], 07/09/2023 11:00:21 07/09/19 24 07/09/2023 CMP (MALE ) sodium 143.0 mmol/ L 136.0- 145.0 Not Available [facility] [address] [facility] [address], [place], [address], 07/09/2023 11:00:21 07/09/19 24 07/09/2023 CMP (MALE ) potassium 4.2 mmol/ L 3.5-5. 1 Not Available [facility] [address] [facility] [address], [place], [address], 07/09/2023 11:00:21 07/09/19 24 07/09/2023 CMP (MALE ) chloride 109.0 mmol/ L 98.0-1 10.0 normal Not Available [facility] [address] [address], [place], [address], 07/09/2023 11:00:21 07/09/19 24 07/09/2023 CMP (MALE ) C02 24.0 mmol/ L 22.0-3 1.0 Not Available [facility] [address] [address], [place], [address], 07/09/2023 11:00:21 07/09/19 24 07/09/2023 CMP (MALE ) anion gap 10.0 calc Not Available [facility] [address] [address], [place], [address], 07/09/2023 11:00:21 07/09/19 24 07/09/2023 CMP (MALE ) osmolality 297.6 calc Not Available [facility] [address] [facility], [place], [address], 07/09/2023 11:00:21 07/09/19 24 07/09/2023 LIPID PROFI LE (MALE ) cholesterol 256.0 mg/dL 0.0-20 0.0 high Not Available [place] [facility] [address] [facility] [address], [place], [address], 07/09/2023 11:01:33 07/09/19 24 07/09/2023 LIPID PROFI LE (MALE ) trig 84.0 mg/dL 0.0-15 0.0 Not Available [facility] [address] [facility], [place], [address], 07/09/2023 11:01:33 07/09/19 24 07/09/2023 LIPID PROFI LE (MALE ) HDL - direct 58.0 mg/dL >40.0 Not Available [facility] [address] [facility], [place], [address], 07/09/2023 11:01:33 07/09/19 24 07/09/2023 LIPID PROFI LE (MALE ) VLDL - direct 16.8 mg/dL Not Available [facility] [address] [facility] [address], [place], [address], 07/09/2023 11:01:33 07/09/19 24 07/09/2023 LIPID PROFI LE (MALE ) LDL - direct 181.2 mg/dL 0.0-13 0.0 high Not Available [facility] [address] [facility], [place], [address], 07/09/2023 11:01:33 07/09/19 24 07/09/2023 CBC WBC 8.6 x10 4.5-10 .5 Not Available [facility] [address] [facility] [address], [place], [address], 07/09/2023 11:01:37 07/09/19 24 07/09/2023 CBC RBC 4.66 x10 4.30-5 .90 Not Available [facility] [address] [facility] [address], [place], [address], 07/09/2023 11:01:37 07/09/19 24 07/09/2023 CBC HGB 15.9 g/dL 13.5-1 8.0 Not Available [facility] [address] [facility], [place], [address], 07/09/2023 11:01:37 07/09/19 24 07/09/2023 CBC HCT 45.1 % 35.0-6 0.0 Not Available [facility] [address] [facility], [place], [address], 07/09/2023 11:01:37 07/09/19 24 07/09/2023 CBC MCV 96.8 fL 80.0-9 9.9 Not Available [facility] [address] [facility], [place], [address], 07/09/2023 11:01:37 07/09/19 24 07/09/2023 CBC MCH 34.1 pg 27.0-3 2.0 high Not Available [facility] [address] [facility], [place], [address], 07/09/2023 11:01:37 07/09/19 24 07/09/2023 CBC MCHC 35.2 g/dL 32.0-3 6.0 Not Available [facility] [address] [facility], [place], [address], 07/09/2023 11:01:37 07/09/19 24 07/09/2023 CBC RDW 12.7 % 11.5-1 4.5 Not Available [facility] [address] [facility], [place], [address], 07/09/2023 11:01:37 07/09/19 24 07/09/2023 CBC plt 273.6 x10 150.0- 451.0 Not Available [facility] [address] [facility], [place], [address], 07/09/2023 11:01:37 07/09/19 24 07/09/2023 CBC lymphocytes % 17.0 % 20.0-5 0.0 low Not Available [facility] [address] [facility], [place], [address], 07/09/2023 11:01:37 07/09/19 24 07/09/2023 CBC granulcytes % 71.4 % 30.0-7 0.0 high Not Available [facility] [address] [facility] [address], [place], [address], 07/09/2023 11:01:37 07/09/19 24 07/09/2023 CBC monocytes % 9.5 % 2.0-10 .0 Not Available [facility] [address] [facility] [address] [address], [place], [address], 07/09/2023 11:01:37 07/09/19 24 07/09/2023 CBC granulcytes# 6.1 x10 Not Leila ilable [facility] [address] [place] [address], [place], [address], 07/09/2023 11:01:37 07/09/19 24 07/09/2023 CBC lymphocytes # 1.5 x10 Not Available [facility] [address] [address], [place], [address], 07/09/2023 11:01:37 07/09/19 24 07/09/2023 CBC monocytes # 0.8 x10 Not Avai lable [facility] [address] [address], [place], [address], 07/09/2023 11:01:37 07/09/19 24 07/09/2023 TSH, serum or plasm a TSH 0.85 uIU/m L 0.49-3 .82 Not Available [facility] ([facility]) [address] [place], [address], 07/09/2023 09:47:40 07/09/19 24 07/09/2023 HbA1c (hemo globi n A1c), blood HbA1c 5.2 Not Available [facility] ([facility]) [address] [place], [address], 07/09/2023 09:47:50 02/14/20 23 02/12/2023 XR, elbow , 3 or more view No observ ation record ed. [email or web address] [facility] [address] [place], [address], 02/15/2023 14:33:32 02/17/20 23 02/16/2023 MRI, elbow , w/o contr ast No observ ation record ed. [email or web address] [facility] [address] [place], [address], 02/26/2023 13:55:29 Result Notes None recorded. Problems Name Problem SNOMED Code Status Onset Date Resolution Date Notes Provider Name and Address Organization Details Recorded Time Spontaneo us pneumotho rax 58630351 Active 2004 SPONTANEO US PNEUMOTHO RAX; Date: 2004; 2 9:25AM by Iza Miller RN, Office Visit; Promoted; acuity set as *; Not Available [facility] 3 03:14:32 Tonsillec brit Active 2021 Tonsillec brit; 2 9:25AM by Iza Miller RN, Office Visit; Promoted; acuity set as *; Not Available [facility] 3 03:14:31 Depressiv e disorder 10577327 Active 2022 Chris Fontanez DO [address] [place], [address] , [facility] [address], LSylvie 3 15:53:42 Pain radiating to lumbar region of back 850688620 Active 2022 Chris Fontanez, DO [address] [place] [address], [address] , [facility] 3 15:53:44 History of lumbar fusion 58360493603 106 Active 2022 Chris Fontanez, [address] [place] [address], [address] , [facility] 3 15:53:45 Hyperlipi demia 78180882 Active 2023 [facility] 4 13:34:39 Problem Notes None recorded. Medical Equipment None Reported. Allergies No known drug allergies Medications Name Sig Start Date Stop Date Status Note LastModified by Organization Details LastModified Time atorvasta tin 20 mg tablet TAKE 1 TABLET BY MOUTH EVERY DAY active Not Available Not Available No t Available ketoconaz ole 2 % shampoo lather into SCALP TWO TO THREE times PER week allow TO sit ON SCALP FOR FIVE minutes before rinsing 07/08 completed Not Available Not Available Not Available tizanidin e 4 mg tablet TAKE ONE TABLET BY MOUTH EVERY 8 HOURS 07/08 completed Not Available Not Available Not Available hydrocodo ne 5 mg-acetam inophen 325 mg tablet TAKE 1 TABLET BY MOUTH EVERY 6 HOURS NEEDED FOR PAIN for 5 days 07/08 completed Not Available Not Available Not Available sertralin e 100 mg tablet TAKE 1 TABLET EVERY DAY (DOSE INCREASE ) 2023 active Not Available Not Available Not Avai lable oxycodone -acetamin ophen 5 mg-325 mg tablet TAKE 1 TABLET BY MOUTH EVERY night NEEDED FOR moderate pain max of ONE tab PER day 11/29 completed Not Available Not Available Not Available triamcino lone acetonide 0.1 % topical ointment APPLY TO THE AFFECTED AREA(S) TWICE DAILY FOR TWO weeks alternat ing with clobetas ol 07/08 completed Not Available Not Available Not Available clobetaso l 0.05 % topical foam APPLY TO THE AFFECTED AREA(S) TWICE DAILY ON SCALP NEEDED 07/08 completed Not Available Not Available Not Available hydroxyzi ne HCl 25 mg tablet TAKE 1 TABLET BY MOUTH THREE TIMES DAILY NEEDED FOR PANIC ATTACK active Not Available Not Available No t Available clobetaso l 0.05 % topical ointment APPLY TO THE AFFECTED AREA(S) TWICE DAILY FOR no more THAN TWO weeks PER MONTH NEEDED alternat ing with triamcin olone 07/08 completed Not Available Not Available Not Available methylpre dnisolone 4 mg tablets in a dose pack TAKE BY MOUTH PER PACKAGE DIRECTIO NS 07/08 completed Not Available Not Available Not Available sertralin e 50 mg tablet TAKE 1 TABLET AT BEDTIME 11/29 completed Not Available Not Available Not Available duloxetin e 30 mg capsule,d elayed release TAKE 1 CAPSULE BY MOUTH EVERY DAY 11/29 completed Not Available Not Available Not Available sildenafi l (pulmonar y hypertens ion) 20 mg tablet TAKE 1-5 TABLETS EVERY DAY NEEDED 2023 active Not Available Not Available Not Avai lable pregabali n 50 mg capsule TAKE ONE CAPSULE BY MOUTH TWICE DAILY 07/08 completed Not Available Not Available Not Available pregabali n 100 mg capsule Take 1 capsule twice a day by oral route for 90 days. active Not Available Not Available No t Available hydroxyzi ne HCl three times daily, as needed 07/08 completed for panic attack; [address]450[address]; Recorded 07/06/19 23 12:26PM by Coleen Miller RN (Authori brigid through Chris Fontanez DO), Annotyomi on/Adden dum; Mail Order Quantity : 90 Tablet; Refill Quantity : 30; Tablet; Not Available Not Available Not Available sildenafi l daily, as needed 07/08 completed [address]; Recorded 07/13/19 23 9:06AM by Coleen Miller RN (Authori brigid through Chris Fontanez DO), Annotati on/Adden dum; Mail Order Quantity : 20 Tablet; Refill Quantity : 0; Not Available Not Available Not Available Lyrica two times daily 07/08 completed Recorded 07/13/19 23 9:17AM by Chris Fontanez, , Refill Request; Mail Order Quantity : 180 Capsule; Mail Order Days: 90 Days; Refill Quantity : 0; Not Available Not Available Not Available butaljuarez l-acetami nophen-ca ffeine 50 mg-300 mg-40 mg capsule TAKE ONE C BY MOUTH FOUR TIMES DAILY 11/29 completed Not Available Not Available Not Available Stimulant Laxative Plus 8.6 mg-50 mg tablet TAKE ONE TABLET BY MOUTH TWICE DAILY 07/08 completed Not Available Not Available Not Available Vitals Date Recorded Body height Body mass index (BMI) Body weight Respiratory rate Heart rate Oxygen saturation Oxygen saturation in Arterial blood by Pulse oximetry Systolic And Diastolic Provider Name and Address Organization Details Last Updated DateTime 4 173.99 cm 33.9 kg/m2 130359. 88 g 18 /min 91 /min 91 % 91 % 144/80 mm[Hg] [facility] 4 09:36:58 Date Recorded Body weight Respiratory rate Heart rate Oxygen saturation Oxygen saturation in Arterial blood by Pulse oximetry Systolic And Diastolic Provider Name and Address Organization Details Last Updated DateTime 3 645741. 43 g 20 /min 70 /min 93 % 93 % 136/78 mm[Hg] [facility] 3 15:35:21 Date Recorded Body height Body mass index (BMI) Body weight Oxygen saturation Oxygen saturation in Arterial blood by Pulse oximetry Heart rate Body temperature Systolic And Diastolic Provider Name and Address Organization Details Last Updated DateTime 5 175.26 cm 37.8 kg/m2 330034. 65 g 98 % 98 % 90 /min 98.1 [degF] 146/100 mm[Hg] Alba Tavares [facility] 5 12:23:47 Date Recorded Body height Body mass index (BMI) Body weight Respiratory rate Heart rate Oxygen saturation Oxygen saturation in Arterial blood by Pulse oximetry Systolic And Diastolic Provider Name and Address Organization Details Last Updated DateTime 3 173.99 cm 34.5 kg/m2 638395. 25 g 24 /min 68 /min 92 % 92 % 136/80 mm[Hg] IZA MILLER [facility] 3 10:56:19 Social History Question Answer Notes LastModified by Organizat ion Details LastModified Time Tobacco Smoking Status Former Smoker IZA MILLER [facility] 09/20/2022 15:37:20 Are You Blind Or Do You Have Difficulty Seeing? No [email or web address] Information not available 09/20/2022 When Did You Quit Smoking? 6-10yearssin celastcigare tte [email or web address] Information not available 09/20/2022 Have You Had Direct Contact, Or Contact During Intimacy, With Monkeypox Rash, Scabs, Or Body Fluids From A Person With Monkeypox? No [email or web address] Information not available 09/20/2022 What Was The Date Of Your Most Recent Tobacco Screening? 11/29/2024 [email or web address] Information not available 11/29/2024 Have You Recently Traveled Abroad? No [email or web address] Information not available 09/20/2022 Do You Have Difficulty Walking Or Climbing Stairs? Yes [email or web address] Information not available 09/20/2022 Sex: Unknown Functional Status Question Answer Note LastModified by Organizat ion Details LastModified Time Are you able to walk? YESASSIST [email or web address] Information not available 09/20/2022 Do you have difficulty doing errands alone? Yes Information not available 09/20/2022 Are you able to care for yourself independently? Yes [email or web address] Information not available 09/20/2022 Do you have difficulty dressing, bathing, grooming, or toileting? Yes [email or web address] Information not available 09/20/2022 Mental Status Question Answer Note LastModified by Organization D etails LastModified Time Do you have difficulty concentrating, remembering or making decisions? No Information no t available 09/20/2022 Family History Nothing Reported. Medical History No medical history recorded. Immunizations Vaccine Type Date Status Note Provider Nam e and Address Organization Details Recorded Time tetanus toxoid, unspecified formulation 2 completed [facility] Available [facility] 12/02/2022 02:19:15 Past Encounters Encounter ID Performer Location Encounter Start Date Encounter Closed Date Diagnosis/Indication Diagnosis SNOMED-CT Code Diagnosis ICD10 Code Diagnosis Note [id number] Chris DO Estee [facility] ([facility]) [address] [place] [address] 09/20/2022 15:29:43 09/20/2022 17:42:57 Depressive disorder 26695042 F32.9 mood good; continue medicine Pain radia ting to lumbar region of back 621900279 M54.50 History of lumbar fusion 0802802630 9106 Z98.1 fusion went well [id number] Chris Fontanez DO [facility] ([facility]) [address] [place] [address] 02/12/2023 10:49:26 02/12/2023 11:37:27 Pain of right elbow joint 4201526026 6825063 M25.177 [id number] Chris Fontanez DO [facility]) [address] [place] [address] 07/09/2023 09:28:01 07/09/2023 09:59:05 Pain radiating to lumbar region of back 910596656 M54.50 Depressive disorder 3548 9007 F32.9 Hyperglycemia 09124371 R 73.9 Health Concerns Section Related Observation LastModified by Organization Detai ls LastModified Time None Recorded Concern Status LastModified by Organization Details LastModified Time None Recorded Advance Directives Directive None Recorded Payers Insurance Date Sequence Insurance Name Policy Number Policy Myles Covered Member ID Myles Member ID Guarantor Name 07/09/2023 [place] - [facility] (MEDICARE) Jefry Burnette [id number] Jefry Burnette 11/29/2024 2 [employer] Jefry Burnette [id number] Jefry Burnette 07/09/2023 1 [place] Jefry Burnette [id number] Jefry Burnette Notes Date Note Type Note Provider Name and Address Organization Details Recorded Time 3 text/html Anxiety/DepressionRepo rted by PatientHPIFor context, patient reportschronic pain. For severity, patient reportsdenies suicidal ideationsandable to maintain relationships. For associated symptoms, patient reportsmood good.ROS as noted in the [facility] Chris Fontanez DO [address] [place] [address], [phone], [facility] 09/20/2022 15:57:28 3 text/html Joint PainReported by PatientHPIFor quality, patient reportstinglinganddull . For location, patient reportspain is not radiatingandright elbow. For severity, patient reportsno change. For duration, patient reportspresent for 1-6 months. For timing, patient reportsintermittent,pa in at night, andsudden. For context, patient reportstrauma.ROS as noted in the [facility] Chris Fontanez DO [address] [place] [address], [phone], [facility] 02/12/2023 11:06:55 4 text/html Anxiety/DepressionRepo rted by PatientHPIFor context, patient reportschronic pain. For severity, patient reportsdenies suicidal ideationsandable to maintain relationships. For associated symptoms, patient reportsmood good.ROS as noted in the [facility] Chris Fontanez DO [address] [place] [address], [phone], [facility] 07/09/2023 09:54:29 5 text/html walk inToday hit table with right hand, c/o pain to 5th finger Not Available Not Available Not Available
[2024-11-29 12:08] VITALS: BP 131/88; PULSE 68; RESP 18; TEMP 36.7; O2SAT 96; BMI 37.8
--- NOTE | 2024-11-29 13:43 | W.ED.EXTPRO ---
HPI - Extremity Problem General: Chief complaint: Extremity Injury, Upper Stated complaint: rt hand inj Time Seen by Provider: 11/29/24 13:02 Source: patient Mode of arrival: ambulatory Limitations: no limitations History of Present Illness: Patient is a 44-year-old male who presents to the emergency department with an injury to the right hand. Patient states he hit his hand on a table to try and get his kids attention and reports pain and swelling since that time. He denies any numbness or tingling. He denies any significant wrist pain. He denies any other injuries. He presents to the emergency department for further evaluation and treatment. Associated symptoms: Deny chest pain, fever(s) or rash Related Data Home Medications ?Medication ?Instructions ?Recorded ?Confirmed docusate sodium 100 mg capsule 100 mg PO DAILY PRN Constipation 12/23/21 09/13/23 (Dulcolax Stool Softener (docusate)) ibuprofen 200 mg tablet 200 mg PO Q6H PRN Pain 12/23/21 09/13/23 Held on 06/20/22. Instructions: Resume on 07/15/22. pregabalin 100 mg capsule (Lyrica) 100 mg PO BID 12/23/21 09/13/23 sennosides 8.6 mg tablet (senna) 8.6 mg PO DAILY PRN Constipation 12/23/21 09/13/23 sertraline 50 mg tablet (Zoloft) 50 mg PO DAILY 12/23/21 09/13/23 sildenafil (pulm.hypertension) 20 See Rx Instructions PO DAILY PRN 12/23/21 09/13/23 mg tablet Hypertension hydroxyzine HCl 25 mg tablet 20 mg PO PRN PRN Anxiety 06/12/22 09/13/23 Previous Rx's ?Medication ?Instructions ?Recorded ketoconazole 2 % shampoo 1 applic topical .2x weekly #120 mL 06/13/22 sennosides 8.6 mg-docusate sodium 1 tab-cap PO BID #30 tabs 06/24/22 50 mg tablet (Senna with Docusate Sodium) tizanidine 4 mg capsule 4 mg PO Q8H #30 caps 06/24/22 clobetasol 0.05 % topical foam 1 applic topical BID #100 grams 09/04/22 triamcinolone acetonide 0.1 % 1 applic topical BID #80 grams 09/04/22 topical ointment HINGED ELBOW BRACE. #1 ea 03/13/23 hydrocodone 5 mg-acetaminophen 325 1 - 2 tab PO .q4-6H PRN pain 2 11/29/24 mg tablet days #14 tabs Allergies Allergy/AdvReac Type Severity Reaction Status Date / Time No Known Allergies Allergy Verified 09/13/23 08:02 Review of Systems General: Reports: 10 or more systems reviewed and unremarkable except in HPI and below Const: Denies: fever(s) or chills Eyes: Denies: eye discharge or eye redness ENMT: Denies: throat pain, hoarseness or swelling of lips/tongue Card: Denies: chest pain Resp: Denies: dyspnea GI: Denies: abdominal pain, nausea or vomiting : Denies: difficulty urinating or dysuria Musc: Reports: extremity pain (Right hand pain and swelling) and joint swelling (Right hand over the 5th MCP joint) Skin/Breast: Denies: rash or pruritus Neuro: Denies: headache(s), numbness in extremities or weakness in extremities Psych: Denies: anxiety Endo: Denies: polyuria or polydipsia Wes/Lymph: Denies: easy bruising, easy bleeding or petechiae All/Imm: Denies: throat swelling or tongue swelling PFSH ED PFSH: Medical History Erectile dysfunction Anxiety and depression Neuropathic pain Chronic lower back pain Chronic migraine Ependymoma of spinal cord History of pneumothorax Surgical History History of tonsillectomy History of chest tube placement Due to spontaneous pneumothorax History of spinal surgery (02/11/18) Complete laminectomy with bilateral foraminotomies at T9 and hemilaminectomy with bilateral foraminotomies at T8 and T10 with excision of intraspinal neoplasm History of laminectomy (02/2017) L4 & L5 Family History Father CAD (coronary artery disease) Grandfather CAD (coronary artery disease) Other Cancer Dementia Hyperlipidemia Hypertension Denies family history of Clotting disorder Psychiatric illness Chronic kidney disease (CKD) Suicide Anesthesia complication Bleeding disorder Lung disease Stroke Social History (Updated 11/29/24 @ 13:45 by EDWARDO Bennett) Smoking and tobacco/nicotine status: former use of tobacco/nicotine Alcohol intake: current Alcohol intake frequency: few times a week Physical Exam Const: COMMON NORMALS: no acute distress, patient oriented x3 and no limitations HENMT: COMMON NORMALS: normocephalic, atraumatic, external ears normal and Normal external nose present HEAD & SCALP: normocephalic and atraumatic NOSE: Normal external nose present EXTERNAL EAR: Yes external ears normal Eye: COMMON NORMALS: conjunctivae normal CONJUNCTIVA: Yes conjunctivae normal Neck/C-Spine: COMMON NORMALS: full ROM Resp: COMMON NORMALS: normal respiratory effort and clear to auscultation bilaterally; negative for No retractions AUSCULTATION: clear to auscultation bilaterally, no crackles, no rales, no rhonchi and no wheezes Cardio: COMMON NORMALS: regular rate and regular rhythm RATE: regular rate RHYTHM: regular rhythm Extremity: RIGHT UPPER EXTREMITY: Yes wrist Right wrist: Yes inspection and Yes ROM and No hand & digits (Patient with pain and swelling on the ulnar side of the dorsal right hand) Neuro: COMMON NORMALS: patient oriented x3, no focal motor deficits and no sensory deficits noted Psych: COMMON NORMALS: mental status grossly normal, cooperative and speech normal ATTITUDE: Yes calm SPEECH: Yes normal speech Skin: COMMON NORMALS: no rashes or lesions noted and no wounds GENERAL SKIN EXAM: no rashes or lesions noted and ecchymosis (Mild dorsal right hand) Procedures Orthopedic Splinting/Casting Injury #1: Side: right Upper Extremity Injury Location: hand Upper Extremity Immobilizer: ulnar gutter Additional Comments: Ortho-Glass splint was placed by the biomedical repair technician. I personally examined the patient after the splint application. Patient maintained good sensation and capillary refill after splint application. Course Vital Signs: Vital signs: Vital Signs Temperature 98.0 F 11/29/24 12:08 Pulse Rate 74 11/29/24 14:03 Respiratory Rate 18 11/29/24 12:08 Blood Pressure 133/85 11/29/24 14:03 Pulse Oximetry 93 11/29/24 14:03 Oxygen Delivery Me thod Room Air 11/29/24 14:03 MDM - Extremity (Nontraumatic) Medical Decision Making Patient was advised of the exam and imaging findings. He does appear to have a fracture of the distal fifth metacarpal bone with some mild angulation. This fracture is closed. The patient was placed in an ulnar gutter splint and advised to follow-up with orthopedics for further evaluation and treatment. I recommended he avoid activities that makes the symptoms worse, use the pain medications as directed and ice and elevate as directed. He was also advised to return to the emergency department with any worsening symptoms. The patient expressed understanding. Lab Data Radiology Impressions Hand X-Ray 11/29/24 11:51 IMPRESSION: Boxer's fracture. All radiology interpretation(s) finalized by discharge Critical Care Time Critical Care Time: Critical Care Time: No Discharge Plan Discharge Patient Disposition: Home Clinical Impression: Closed boxer's fracture Qualifiers: Encounter type: initial encounter Qualified Code(s): S62.339A - Displaced fracture of neck of unspecified metacarpal bone, initial encounter for closed fracture Prescriptions: New hydrocodone-acetaminophen 5-325 mg tablet 1 - 2 tab PO .q4-6H PRN (Reason: pain) 2 Days Qty: 14 0RF Rx Instructions: No alcohol use, driving or additional Tylenol with this medication Discontinued acetaminophen [Tylenol] 325 mg tablet 325 mg PO QID PRN (Reason: Pain) No Action pregabalin [Lyrica] 100 mg capsule 100 mg PO BID sertraline [Zoloft] 50 mg tablet 50 mg PO DAILY ibuprofen 200 mg tablet 200 mg PO Q6H PRN (Reason: Pain) docusate sodium [Dulcolax Stool Softener (dss)] 100 mg capsule 100 mg PO DAILY PRN (Reason: Constipation) sennosides [senna] 8.6 mg tablet 8.6 mg PO DAILY PRN (Reason: Constipation) sildenafil (pulm.hypertension) 20 mg tablet See Rx Instructions PO DAILY PRN (Reason: Hypertension) Rx Instructions: 1 to 5 tablets orally daily PRN; administer doses at least 4-6 hours apart (DME) HINGED ELBOW BRACE. See Rx Instructions .ROUTE .MEDSUPPLY Qty: 1 0RF Rx Instructions: As directed ketoconazole 2 % shampoo 1 applic topical .2x weekly Qty: 120 6RF Rx Instructions: Lather into scalp 2-3 times weekly. Allow to sit on scalp for 5 minutes before rinsing. triamcinolone acetonide 0.1 % ointment 1 applic topical BID Qty: 80 1RF Rx Instructions: Apply to affected areas twice daily for 2 weeks alternating with clobetasol clobetasol 0.05 % foam 1 applic topical BID Qty: 100 3RF Rx Instructions: Apply twice daily to affected areas on scalp as needed hydroxyzine HCl 25 mg tablet 20 mg PO PRN PRN (Reason: Anxiety) tizanidine 4 mg capsule 4 mg PO Q8H Qty: 30 0RF Senna with Docusate Sodium 8.6-50 mg tablet 1 tab-cap PO BID Qty: 30 0RF Discharge Orders: Discharge ED (Routine); Ordered 11/29/24 Ordered By: Hany Montes Referrals: Tony Webb DO [Physician, Orthopedics] Discharge Diet: Usual diet Discharge Activity: Limit activity as instructed Patient Instructions: Boxer Fracture (ED), Opioid Safety, Pain Management, Patient Portal & [facility] Instructions Activity Restrictions/Additional Instructions: Take medications as directed. Your prescriptions were sent electronically to your preferred pharmacy. No weightbearing on the hand until cleared by doctor. Use the splint directed. Follow-up with orthopedics. Call for an appointment. Elevate the extremity. Ice 20 minutes at a time, 5 times throughout the day as needed for pain or swelling. You may apply the ice over the splint. Return to the emergency department with any worsening symptoms. 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
[2024-11-29] MEDS: HYDROcodone-acetaminophen 5-325 mg Tablet 1 TAB PO (14:02)
[2024-11-29 14:03] VITALS: BP 133/85; PULSE 74; O2SAT 93
== END 2024-11-29 14:14 | disposition home or self-care (01) ==
PROVIDERS: Emergency Provider Physician Assistant
DX: S62.339A Displaced fracture of neck of unspecified metacarpal bone, initial encounter for closed fracture (principal); W22.09XA Striking against other stationary object, initial encounter
CPT/HCPCS: 73130; J9999

== ENCOUNTER → 2024-12-05 09:41 | Outpatient (BNVA) | payer MEDICARE, OTHER, SELFPAY | PROVIDERS: Visit Provider Physician Assistant | DX: S62.336A Displaced fracture of neck of fifth metacarpal bone, right hand, initial encounter for closed fracture (principal); W22.09XA Striking against other stationary object, initial encounter | CPT/HCPCS: 73130 ==

== ENCOUNTER 2024-12-05 10:38 | Outpatient (CLI) | payer MEDICARE, OTHER, SELFPAY | END 2024-12-05 10:39 | disposition home or self-care (01) | LOC: SPT 10:43 | PROVIDERS: Visit Provider Physician Assistant | DX: Z46.89 Encounter for fitting and adjustment of other specified devices (principal); S62.339D Displaced fracture of neck of unspecified metacarpal bone, subsequent encounter for fracture with routine healing; X58.XXXD Exposure to other specified factors, subsequent encounter | CPT/HCPCS: 99203; L3984 ==

== ENCOUNTER → 2024-12-16 08:10 | Outpatient (BNVA) | payer MEDICARE, OTHER, SELFPAY | PROVIDERS: Visit Provider Physician Assistant | DX: S62.336A Displaced fracture of neck of fifth metacarpal bone, right hand, initial encounter for closed fracture (principal); X58.XXXA Exposure to other specified factors, initial encounter | CPT/HCPCS: 73130; 99213 ==

== ENCOUNTER → 2024-12-23 08:55 | Outpatient (BNVA) | payer MEDICARE, OTHER, SELFPAY | PROVIDERS: Visit Provider Physician Assistant | DX: S62.337A Displaced fracture of neck of fifth metacarpal bone, left hand, initial encounter for closed fracture (principal); X58.XXXA Exposure to other specified factors, initial encounter | CPT/HCPCS: 73130; 99214 ==

== ENCOUNTER 2024-12-25 07:51 | Day surgery (SDC) | payer MEDICARE, OTHER, SELFPAY ==
[2024-12-25] VITALS (9 sets, daily range): BP systolic 90–125; BP diastolic 56–81; PULSE 59–70; RESP 14–16; TEMP 36.1–36.6; O2SAT 92–96
--- NOTE | 2024-12-25 | XR_ITS ---
WS: [id number] C-ARM RADIOGRAPHS RIGHT HAND; 2 IMAGES HISTORY: right fifth metacarpal ORIF. COMPARISON: 12/23/2024 Intraoperative imaging during screw fixation fifth metacarpal fracture which is in good alignment. XR/XR hand RT 2V [id number] IMPRESSION: Intraoperative imaging during screw fixation fifth metacarpal fracture.
[2024-12-25] MEDS: acetaminophen 1,000 MG/100 ML PIGGYBACK 400 MG IV (08:19)
--- NOTE | 2024-12-25 08:31 | W.PM.OPSUD ---
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
--- NOTE | 2024-12-25 09:02 | ANES.PREANE2 ---
Pre-Anesthetic Assessment Height/Weight: Height 1.75 m Weight 108.862 kg Temp Pulse Resp BP Pulse Ox O2 Del Method 97 F L 66 16 111/81 95 Room Air 12/25/24 08:09 12/25/24 08:09 12/25/24 08:09 12/25/24 08:09 12/25/24 08:09 12/25/24 08:09 Preop Diagnosis: Right fifth metacarpal neck fracture displaced malrotated Operation Date: 12/25/24 09:40 Proposed Procedures p RIGHT Fifth Metacarpal Open Reduction Internal Fixation(Right) - Tony Webb, Familial anesthetic complications: None Was Beta Gabino taken within 24 hours: N/A Was Clonidine taken within 24 hours: N/A Last intake: Intake Last Liquid Date 12/24/24 Last Liquid Time 20:30 Last Solid Date 12/24/24 Last Solid Time 18:00 Social No alcohol and No tobacco Exam alert, oriented x 3, clear to auscultation bilaterally and regular rate & rhythm Airway Mallampati: Class II Dentition: full Neuropsych Neuropathy Anesthetic Plan ASA status: 2 Anesthesia: General Risk of > 500 ml blood loss (7ml/kg in children): No Medications/Allergies Home Medications ?Medication ?Instructions ?Recorded ?Confirmed ?Last Taken ?Type docusate sodium 100 mg capsule 100 mg PO DAILY PRN Constipation 12/23/21 12/25/24 Unknown History (Dulcolax Stool Softener (docusate)) ibuprofen 200 mg tablet 200 mg PO Q6H PRN Pain 12/23/21 12/25/24 06/06/22 History Held on 06/20/22. Instructions: Resume on 07/15/22. pregabalin 100 mg capsule (Lyrica) 100 mg PO BID 12/23/21 12/25/24 12/24/24 History sertraline 50 mg tablet (Zoloft) 50 mg PO DAILY 12/23/21 12/25/24 12/24/24 History sildenafil (pulm.hypertension) 20 See Rx Instructions PO DAILY PRN 12/23/21 12/25/24 Unknown History mg tablet Hypertension hydroxyzine HCl 25 mg tablet 20 mg PO PRN PRN Anxiety 06/12/22 12/25/24 12/10/24 History ketoconazole 2 % shampoo 1 applic topical .2x weekly #120 mL 06/13/22 12/25/24 Unknown Rx sennosides 8.6 mg-docusate sodium 1 tab-cap PO BID #30 tabs 06/24/22 12/25/24 Unknown Rx 50 mg tablet (Senna with Docusate Sodium) tizanidine 4 mg capsule 4 mg PO Q8H #30 caps 06/24/22 12/25/24 Unknown Rx clobetasol 0.05 % topical foam 1 applic topical BID #100 grams 09/04/22 12/25/24 Unknown Rx triamcinolone acetonide 0.1 % 1 applic topical BID #80 grams 09/04/22 12/25/24 Unknown Rx topical ointment HINGED ELBOW BRACE. #1 ea 03/13/23 12/25/24 Unknown Rx (right) ulnar gutter fast form #1 ea 12/05/24 12/25/24 Unknown Rx Allergies Allergy/AdvReac Type Severity Reaction Status Date / Time No Known Allergies Allergy Verified 12/23/24 09:22 Current Medications Generic Name Dose Route Start Last Admin Trade Name Freq PRN Reason Stop Dose Admin Sodium Chloride 1,000 mls @ 30 mls/hr 12/25/24 08:00 12/25/24 08:18 Sodium Chloride 0.9% IV 12/26/24 07:59 30 mls/hr .Q24H BOBBY Administration PFSH Anesthesia Medical History Erectile dysfunction Anxiety and depression Neuropathic pain Chronic lower back pain Chronic migraine Ependymoma of spinal cord History of pneumothorax Surgical History History of tonsillectomy History of chest tube placement Due to spontaneous pneumothorax History of spinal surgery (02/11/18) Complete laminectomy with bilateral foraminotomies at T9 and hemilaminectomy with bilateral foraminotomies at T8 and T10 with excision of intraspinal neoplasm History of laminectomy (02/2017) L4 & L5 Family History Father CAD (coronary artery disease) Grandfather CAD (coronary artery disease) Other Cancer Dementia Hyperlipidemia Hypertension Denies family history of Clotting disorder Psychiatric illness Chronic kidney disease (CKD) Suicide Anesthesia complication Bleeding disorder Lung disease Stroke Social History Smoking and tobacco/nicotine status: former use of tobacco/nicotine Alcohol intake: current Alcohol intake frequency: few times a week
[2024-12-25] MEDS: ceFAZolin 2,000 MG in sodium chloride 0.9% (plus) 50 ML 100 MG IV (09:09)
--- NOTE | 2024-12-25 10:04 | PM.OP ---
Operative Report Date of procedure: December 25, 2024 Surgeon: Tony Webb DO Net Developer Consultant: Marshal Webb PA-C: PA was necessary for assistance in this case with hand positioning to execute the procedure, retraction and protection of neurovascular structures as well as to assist with wound closure and dressing application. Procedure: Preop Diagnosis ?Displaced right fifth?metacarpal?neck fracture? Post-op diagnosis: Same Post-op findings: See procedure note Procedure done: Right fifth?metacarpal?open reduction internal fixation with intramedullary headless compression?screw Implants: Arthrex 3.5 mm fully threaded headless compression?screw Specimens removed/disposition: None Estimated blood loss (mL): 2cc Tourniquet time 13 minutes IV fluids: 900mL Complications: None Findings: See op note Brief History: pt was seen in office and sustained a right fifth?metacarpal?fracture splinted and sent to my office.? Patient has significant angulation but developed malrotation.Given the instability of the fracture and malrotation. detailed discussion with him in the office about these findings and recommendations of nonoperative versus operative intervention.? Given deformity and malrotaiton and young age recommend surgical intervention.? Through shared decision making patient and family elect to proceed. Detail the risk benefits complications alternatives to surgery.? Risks include but are not limited to make it better or make it worse malunion nonunion loss of function of the hand, injury to extensor tendon mechanism, injury to nerves or vessels, infection.? Understanding these risks he elects to proceed with surgical intervention.? Consent was obtained in preop. Procedure: Patient seen the preoperative holding area.? Consent was finalized and reviewed with patient as well as family in preop holding area confirming correct patient correct site of surgery and correct surgery procedure.? Patient was then evaluated by the anesthesia department.? Taken to the OR suite and placed on the OR table with a hand table to the right upper extremity all bony prominences well-padded patient was secured to the bed.? Patient then underwent anesthesia per the anesthesia department.? Nonsterile tourniquet applied to the right upper extremity.? Right upper extremity was then prepped and draped in standard orthopedic fashion.? Final timeout performed. Right upper extremity was elevated tourniquet inflated mini C-arm was brought in to evaluate the fracture confirming right fifth?metacarpal?neck displaced and angulated fracture and malrotated.? I utilized fluoroscopic imaging and multiple attempts were made at closed reduction and was able to achieve satisfactory close reduction. Once this was reduction was maintained I then held this reduction manually and proceeded with fixation. This point I inserted my guidewire from a headless compression?screw?at the dorsal third of the?metacarpal?head to be an appropriate line with the shaft.? Once this was advanced and confirmed appropriate starting position orthogonal views with mini C arm it was then advanced a reduction maneuver was made closed at the fracture site and the guidewire was then advanced past the fracture into the proximal fragment and then secured into the hamate across the fifth CMC joint.? Once we confirmed appropriate reduction as well as guidepin? being intramedullary we then used the cannulated drill for the 3.5?screw?which was then advanced drilled just past the fracture site.? Next I selected a appropriate length?screw?3.5 Arthrex headless compression fully threaded?screw?this was then held up to the?metacarpal?to determine that it would be appropriate length with mini C arm.? Once this was confirmed this was the appropriate length I then utilized hand?screwdriver and advance this which had excellent fracture site compression as well as maintenance of reduction.? Once this was advanced to appropriate depth being subchondral.? The guidepin was then removed.? Final x-rays AP oblique and lateral confirmed stable reduction and fixation with headless compression?screw.? I then took the hand through range of motion identify patient's tenodesis and finger cascade and good alignment and no malrotation.? Wound bed was then thoroughly irrigated, tourniquet deflated, hemostasis satisfactory. Interrupted nylon suture for skin.? Local injection of lidocaine and ropivacaine was then injected around the fracture site as well as incision.? Patient's fingers were warm and well-perfused after tourniquet was let down.? Dressing applied of 4 x 4's Curlex and a ulnar gutter splint with Juan Ramon wrap.? Patient was then awakened from anesthesia and taken to PACU in stable condition. Disposition: Patient be nonweightbearing right upper extremity maintain splint till follow-up.? Patient seen appropriate discharge instruction as well as pain medication.? Follow-up in 2 weeks in ortho office.
[2024-12-25] MEDS: ROPivacaine 0.5% SDV 30 mL 25 MG INJECTION (10:05)
--- NOTE | 2024-12-25 10:20 | W.PM.BPON ---
Date of Procedure: [December 25, 2024] Surgeon: [Dr. Webb DO] Application Technical Designer(s): [Marshal Webb PA-C] Procedure(s) performed: [Right fifth metacarpal open reduction internal fixation] Findings of the procedure(s): [Right fifth metacarpal neck displaced fracture. Procedure went well and is planned] Estimated blood loss: [2 mL] Specimen(s) removed: [N/A] Post-operative diagnosis: [Right fifth metacarpal neck displaced fracture]
--- NOTE | 2024-12-25 10:22 | PM.PACU ---
PACU note Narrative: Patient is a 44-year-old male who just underwent a right fifth metacarpal open reduction internal fixation. Patient transferred to PACU in stable condition. Pain is well controlled. Dressing on hand is dry and in place. Patient's fingers are warm and well-perfused. Patient can wiggle fingers. normal cap refill under 2 seconds. Patient has normal elbow range of motion. Exam: awake Disposition: discharged
[2024-12-25] MEDS: HYDROcodone-acetaminophen 5-325 mg Tablet 1 TAB PO (11:05)
--- NOTE | 2024-12-25 15:34 | ANE.PACU2 ---
Inpatient post-anesthesia follow up: Airway intact: Yes Vital signs: Temperature 97.3 F Pulse Rate 59 Respiratory Rate 16 Blood Pressure 114/79 Pulse Oximetry 96 Oxygen Delivery Me thod Room Air Oxygen Flow Rate 8 Fraction of Inspir ed Oxygen Hydration adequate: Yes Nausea and vomiting: No Pain level: 1 Mental status: Baseline
== END 2024-12-25 11:30 | disposition home or self-care (01) ==
PROVIDERS: Visit Provider Student in an Organized Health Care Education/Training Program
PROC: (CPT 26615; principal; 2024-12-25 09:30)
DX: S62.336A Displaced fracture of neck of fifth metacarpal bone, right hand, initial encounter for closed fracture (principal); X58.XXXA Exposure to other specified factors, initial encounter; G62.9 Polyneuropathy, unspecified; F41.8 Other specified anxiety disorders; Z87.891 Personal history of nicotine dependence
CPT/HCPCS: 26615; 73120; 76000; C1713; J0131; J0690; J1100; J1885; J2250; J2405; J2704; J2795; J3010; J7030; J9999

== ENCOUNTER → 2025-01-16 10:12 | Outpatient (BNVA) | payer MEDICARE, OTHER, SELFPAY | PROVIDERS: Visit Provider Physician Assistant | DX: Z98.890 Other specified postprocedural states (principal); Z87.81 Personal history of (healed) traumatic fracture | CPT/HCPCS: 73130 ==

== ENCOUNTER 2025-01-16 11:01 | Outpatient (CLI) | payer MEDICARE, OTHER, SELFPAY | END 2025-01-16 11:02 | disposition home or self-care (01) | LOC: SPT 11:02 | PROVIDERS: Visit Provider Physician Assistant | DX: Z47.89 Encounter for other orthopedic aftercare (principal); Z98.890 Other specified postprocedural states; S62.339D Displaced fracture of neck of unspecified metacarpal bone, subsequent encounter for fracture with routine healing; X58.XXXD Exposure to other specified factors, subsequent encounter | CPT/HCPCS: 99024; L3984 ==

== ENCOUNTER → 2025-01-30 09:33 | Outpatient (BNVA) | payer MEDICARE, OTHER, SELFPAY | PROVIDERS: Visit Provider Physician Assistant | DX: Z98.890 Other specified postprocedural states (principal) | CPT/HCPCS: 73130; 99024 ==

== ENCOUNTER 2025-02-10 07:44 | Outpatient (RCR) | payer MEDICARE, SELFPAY | END 2025-03-06 23:59 | disposition home or self-care (01) | LOC: SOT 07:44 | PROVIDERS: Visit Provider Physician Assistant | DX: S62.339A Displaced fracture of neck of unspecified metacarpal bone, initial encounter for closed fracture (principal); X58.XXXA Exposure to other specified factors, initial encounter | CPT/HCPCS: 97110; 97165 ==